=== PATIENT | female | born 1940 | race Caucasian/White ===

== ENCOUNTER 2016-07-22 11:43 | Inpatient (IN) | payer MEDICARE, OTHER ==
[~2016-07-22] VITALS: Ht 157.5 cm; Wt 68.9 kg
[~2016-07-22 11:43] MED LIST: ALBU8I INH; ALPR.25 PO; BEDSMIS4; CALCTAB80 PO; CARI350T19 PO; CLON.5 PO; ENOX30P SQ; FLON0.053; FOLI400T30 PO; LACTTAB7 PO; LEVO.025 PO; LOVA40TA PO; LYRI50CA2 PO; OMEP20TA39 PO; PERC5TAB12 PO; ROPI.25 PO; SERT-129 PO; SPIRCAP INH; VITA-13 PO; VITA100017 PO; VITA100T15 PO; VITA25TA5 PO; VITA400C70 PO; Z.0.WALKERFRONT; ZINC50TA PO
[2016-07-22 11:47] VITALS: BP 117/67; PULSE 84; RESP 24; TEMP 97.4; O2SAT 93
--- NOTE | 2016-07-22 12:49 | PD ---
HPI Chief Complaint: Back/ Neck Pain or Injury Time Seen by Provider: 12:48 Travel History International Travel<30 days: No Contact w/Intl Traveler<30days: No Traveled to known affect area: No History of Present Illness HPI 75-year-old female with history of vertigo, COPD, osteoarthritis, anxiety, presents to emergency department for evaluation of significant neck pain and inability to lift her neck. Patient states that about 6 weeks ago she began having right sided numbness and paralysis that has been intermittent. She has been worked up by Dr. Adolph avila and states that he has not found out why this is happy. She states she has had several falls due to this with her most recent fall last evening in her garage. She did strike her head but following one of the falls she has been having severe pain at the base of her neck and inability to lift her neck. She states she cannot swallow secondary to not being able to lift up her head and she feels that her voice is different. She denies any recent illnesses, fever, chills. No chest pain or tightness. No difficulty breathing. She has no acute focal deficits to describe [facility] Past Medical History Cancer: No Cardiovascular Problems: No Diabetes: No Diminished Hearing: No Endocrine: Yes Gastrointestinal Disorders: Yes (ULCER HX) Genitourinary: No Hepatitis: No Hiatal Hernia: No Immune Disorder: No Musculoskeletal: Yes (ARTHRITIS, RESTLESS LEG SYND.) Neurologic: Yes (VERTIGO) Psychiatric: Yes (ANXIETY) Reproductive: No Respiratory: Yes (COPD) Thyroid Disease: Yes ?: Not Past Surgical History Abdominal Surgery: Yes AICD: No Cholecystectomy: Yes Gynecologic Surgery: Yes (OVARIAN CYSTECTOMIES, TAHBSO) Joint Replacement: Yes (RIGHT KNEE, LEFT HIP) Oral Surgery: Yes (T & A) Pacemaker: No Social History Alcohol Use: No Tobacco Use: No Substance Use: No Allergies-Medications (Allergen,Severity, Reaction): Coded Allergies: Adhesives (Unverified Allergy, Severe, SKIN TEAR, 01/19/14) Reported Meds & Prescriptions Reported Meds & Active Scripts Active Bedside Commode (Misc. Devices) Bedside Mis U Walker Front Wheel (Walkerfront) Device 1 Unit PRN Klonopin (Clonazepam) 0.5 Mg Tab 0.5 Mg PO TID Requip (Ropinirole HCl) 0.25 Mg Tab 0.25 Mg PO TID Percocet 5-325 mg (Oxycodone/Acetaminophen) Oxycodone 5/325 Acetaminophen Tab 1- 2 Tab PO Q4H PRN Lovenox (Enoxaparin Sodium) 30 Mg/0.3 Ml Inj 30 Mg SQ Q12H 10 Days Ventolin Hfa (Albuterol Sulfate) 8 Gm Aero 2 Puff INH Q6 PRN * SHAKE WELL BEFORE USE * Xanax 0.25 Mg (Alprazolam) Alprazolam 0.25 mg Tab 1 Tab PO DAILY PRN Reported Spiriva Handihaler (Tiotropium [place]) 18 Mcg Cap 1 Dose INH DAILY DO NOT SWALLOW CAPSULES Lyrica (Pregabalin) 50 Mg Cap 50 Mg PO BID Levothyroxine 25 mcg (Levothyroxine Sodium) 25 Mcg Tab 1 Tab PO DAILY Floranex (Lactobacillus) Tab 1 Tab PO DAILY Zinc 50 Mg Tab 1 Tab PO DAILY Vitamin C (Ascorbic Acid) 1,000 Mg Tab 1,000 Mg PO DAILY Vitamin E 400 Units Cap 400 Units PO DAILY Vitamin D3 1000 Unit Tab (Cholecalciferol) 1,000 Unit Tab 1,000 Unit PO DAILY Calcium 1000 + D (Calcium Carbonate/Cholecalciferol) Tab 1 Tab PO DAILY Folate (Folic Acid) 400 Mcg Tab 400 Mcg PO DAILY Vitamin B-6 (Pyridoxine Hcl) 25 Mg Tab 50 Mg PO DAILY Vitamin B12 (Cyanocobalamin) 100 Mcg Tab 250 Mcg PO DAILY Flonase (Fluticasone Propionate) 0.05 % Naspr 2 Spr NA BID 2 SPRAYS EACH NOSTRIL Hm Omeprazole (Omeprazole) 20 Mg Tab 20 Mg PO DAILY Lovastatin 40 Mg Tab 40 Mg PO DAILY Sertraline Hcl (Sertraline HCl) 100 Mg Tab 100 Mg PO DAILY Carisoprodol 350 Mg Tab 350 Mg PO Q8H PRN Review of Systems Except as stated in HPI: all other systems reviewed are Neg Physical Exam Narrative GENERAL: Well-nourished female patient, appears chronically ill but in no acute distress SKIN: Warm and dry. HEAD: Atraumatic. Normocephalic. Head is held forward EYES: Pupils equal and round. No scleral icterus. No injection or drainage. ENT: No nasal bleeding or discharge. Mucous membranes pink and moist. NECK: Trachea midline. No JVD. Tenderness elicited palpation at the base of the cervical spine CARDIOVASCULAR: Regular rate and rhythm. No murmur appreciated. RESPIRATORY: No accessory muscle use. Clear to auscultation. Breath sounds equal bilaterally. GASTROINTESTINAL: Abdomen soft, non-tender, nondistended. Hepatic and splenic margins not palpable. MUSCULOSKELETAL: No obvious deformities. No clubbing. No cyanosis. No edema. NEUROLOGICAL: Awake and alert. No obvious cranial nerve deficits. Motor grossly within normal limits. Normal speech. PSYCHIATRIC: Appropriate mood and affect; insight and judgment normal. Data Data Last Documented VS Vital Signs Date Time Temp Pulse Resp B/P Pulse Ox O2 Delivery O2 Flow Rate FiO2 07/22/16 11:47 97.4 84 24 117/[address] Cerv Spine W/O Contrast (07/22/16 ) Apply Cervical Collar (07/22/16 12:46) Chest, Single Ap (07/22/16 ) Ct Brain W/O Iv Contrast(Rout) (07/22/16 ) Complete Blood Count With Diff (07/22/16 12:46) Basic Metabolic Panel (Bmp) (07/22/16 12:46) Electrocardiogram (07/22/16 12:46) Ckmb (Isoenzyme) Profile (07/22/16 12:46) Prothrombin Time / Inr (Pt) (07/22/16 12:46) Act Partial Throm Time (Ptt) (07/22/16 12:46) Troponin I (07/22/16 12:46) Urinalysis - C+S If Indicated (07/22/16 12:46) CKMB (07/22/16 13:01) CKMB% (07/22/16 13:01) Toe (Min 2vws) (07/22/16 17:48) Admit Order (Ed Use Only) (07/22/16 18:20) Labs Laboratory Tests Test 07/22/16 07/22/16 13:01 13:19 Prothrombin Time 10.9 SEC Prothromb Time International 1.0 RATIO Ratio Activated Partial 25.9 SEC Thromboplast Time Sodium Level 129 MEQ/L Potassium Level 5.2 MEQ/L Chloride Level 94 MEQ/L Carbon Dioxide Level 20.6 MEQ/L Anion Gap 14 MEQ/L Blood Urea Nitrogen 60 MG/DL Creatinine 4.27 MG/DL Estimat Glomerular Filtration 10 ML/MIN Rate Random Glucose 132 MG/DL Calcium Level 8.8 MG/DL Total Creatine Kinase 6427 U/L Creatine Kinase MB 88.9 NG/ML Creatine Kinase MB % 1.4 % Troponin I LESS THAN 0.02 NG/ML White Blood Count 24.3 TH/MM3 Red Blood Count 3.38 MIL/MM3 Hemoglobin 10.2 GM/DL Hematocrit 30.9 % Mean Corpuscular Volume 91.2 FL Mean Corpuscular Hemoglobin 30.1 PG Mean Corpuscular Hemoglobin 33.0 % Concent Red Cell Distribution Width 15.0 % Platelet Count 374 TH/MM3 Mean Platelet Volume 7.4 FL Neutrophils (%) (Auto) 89.4 % Lymphocytes (%) (Auto) 4.7 % Monocytes (%) (Auto) 5.6 % Eosinophils (%) (Auto) 0.0 % Basophils (%) (Auto) 0.3 % Neutrophils # (Auto) 21.7 TH/MM3 Lymphocytes # (Auto) 1.1 TH/MM3 Monocytes # (Auto) 1.4 TH/MM3 Eosinophils # (Auto) 0.0 TH/MM3 Basophils # (Auto) 0.1 TH/MM3 CBC Comment AUTO DIFF Differential Comment AUTO DIFF CONFIRMED Platelet Estimate NORMAL Platelet Morphology Comment NORMAL MDM Medical Decision Making Medical Screen Exam Complete: Yes Emergency Medical Condition: Yes Medical Record Reviewed: Yes Differential Diagnosis Fracture versus sprain versus intracranial etiology versus neuralgia versus electrolyte abnormality Narrative Course 75-year-old female presents to the emergency department for evaluation. Workup is initiated in triage. Once a medical bed becomes available, patient will be transferred and care assumed by that provider. Condition: Stable JefferySherinLissakalyn GUEVARA Jul 22, 2016 12:48
[2016-07-22 13:28] LABS: AUTOMATED NEUTROPHIL # 21.7 TH/MM3 (1.8-7.7); BASOPHIL # 0.1 TH/MM3 (0-0.2); BASOPHIL % 0.3 % (0.0-2.0); HEMATOCRIT 30.9 % (35.0-46.0); LYMPH % 4.7 % (9.0-44.0); LYMPHOCYTE # 1.1 TH/MM3 (1.0-4.8); MEAN CELL VOLUME 91.2 FL (80.0-100.0); MEAN CORPUSCULAR HEMOGLOBIN 30.1 PG (27.0-34.0); MONO % 5.6 % (0.0-8.0); NEUT % 89.4 % (16.0-70.0); PLATELET COUNT 374 TH/MM3 (150-450); RED BLOOD COUNT 3.38 MIL/MM3 (4.00-5.30); WHITE BLOOD COUNT 24.3 TH/MM3 (4.0-11.0)
[2016-07-22 13:30] LABS: HEMO FLAGS AUTO DIFF
[2016-07-22 13:40] LABS: APTT (PATIENT) 25.9 SEC (24.3-30.1); PROTHROMBIN TIME - PATIENT 10.9 SEC (9.8-11.6)
[2016-07-22 13:44] LABS: ANION GAP 14 MEQ/L (5-15); BICARBONATE 20.6 MEQ/L (21.0-32.0); BLOOD UREA NITROGEN 60 MG/DL (7-18); CHLORIDE 94 MEQ/L (98-107); GLOMERULAR FILTRATION RATE 10 ML/MIN (>89); POTASSIUM 5.2 MEQ/L (3.5-5.1); SODIUM (NA) 129 MEQ/L (136-145)
[2016-07-22 13:59] LABS: CREATINE KINASE 6427 U/L (26-192)
[2016-07-22 13:59] LABS: SCAN/DIFF AUTO DIFF CONFIRMED
[2016-07-22 14:00] LABS: PLATELET ESTIMATE SMEAR NORMAL (NORMAL); PLATELET MORPHOLOGY NORMAL (NORMAL)
[2016-07-22 14:11] LABS: CKMB 88.9 NG/ML (0.5-3.6)
--- NOTE | 2016-07-22 14:13 | RADRPT ---
EXAM DATE/TIME: 07/22/2016 13:49 [facility] COMPARISON: No previous studies available for comparison. INDICATIONS : Mutiple falls head neck. RADIATION DOSE: 47.42 CTDIvol (mGy) MEDICAL HISTORY : Cirrhosis. SURGICAL HISTORY : Cholecystectomy. ENCOUNTER: Initial ACUITY: 1 day PAIN SCALE: 7/10 LOCATION: cranial TECHNIQUE: Multiple contiguous axial images were obtained of the head. Using automated exposure control and adj ustment of the mA and/or kV according to patient size, radiation dose was kept as low as reasonably a chievable to obtain optimal diagnostic quality images. FINDINGS: CEREBRUM: The ventricles are normal for age. No evidence of midline shift, mass lesion, hemorrhage or acute in farction. No extra-axial fluid collections are seen. POSTERIOR FOSSA: The cerebellum and brainstem are intact. The 4th ventricle is midline. The cerebellopontine angle i s unremarkable. EXTRACRANIAL: The visualized portion of the orbits is intact. SKULL: The calvaria is intact. No evidence of skull fracture. CONCLUSION: Normal examination for a patient of this age. Raymond Lehman MD on July 22, 2016 at 14:11 Board Certified Radiologist. This report was verified electronically.
--- NOTE | 2016-07-22 14:28 | RADRPT ---
EXAM DATE/TIME: 07/22/2016 13:38 [facility] COMPARISON: No previous studies available for comparison. INDICATIONS : Fell Friday, neck and thoracic spine pain. Pt states very dificult to straighten neck. MEDICAL HISTORY : SURGICAL HISTORY : None. ENCOUNTER: Initial ACUITY: 3 days PAIN SCORE: 10/10 LOCATION: Bilateral chest FINDINGS: 2 portable frontal views of the chest demonstrate the lungs to be symmetrically aerated without evide nce of mass, infiltrate or effusion. The cardiomediastinal contours are unremarkable. Osseous struc tures are intact. CONCLUSION: No acute disease. Shin Martin Jr., MD on July 22, 2016 at 14:26 Board Certified Radiologist. This report was verified electronically.
--- NOTE | 2016-07-22 14:30 | RADRPT ---
EXAM DATE/TIME: 07/22/2016 13:49 [facility] COMPARISON: No previous studies available for comparison. INDICATIONS : Multiple falls, head and neck pain. RADIATION DOSE: 42.99 CTDIvol (mGy) MEDICAL HISTORY : Chronic obstructive pulmonary disease. SURGICAL HISTORY : Cholecystectomy. ENCOUNTER: Initial ACUITY: 3 days PAIN SCALE: 7/10 LOCATION: Bilateral neck TECHNIQUE: Volumetric scanning of the cervical spine was performed. Multiplanar reconstructions in the sagittal, coronal and oblique axial planes were performed. Using automated exposure control and adjustment o f the mA and/or kV according to patient size, radiation dose was kept as low as reasonably achievable to obtain optimal diagnostic quality images. FINDINGS: Thin section axial imaging of the cervical spine was performed. Sagittal and coronal imaging demonstrate adequate alignment of the vertebral bodies. There are degene rated discs throughout the cervical spine. C1/2: No acute bony abnormality identified. C2/3: The thecal space is adequate. The foramina on the right is adequate. There is mild bony foraminal micah rowing on the left. There is advanced facet arthritis on the left. C3/4: The thecal space is adequate. The foramina on the right is adequate. There is advanced facet arthriti s on the left with hypertrophy of the facet joint. There is mild bony foraminal narrowing on the left . C4/5: There is a degenerated disc with mild osteophytic ridging. The thecal space appears adequate. The for josephine demonstrate mild bony narrowing bilaterally. There is moderate facet arthritis bilaterally. C5/6: There is a large uncovertebral osteophyte on the left which projects posteriorly. This effaces the la teral recess and projects into the foramina on the left. The foramina on the right is adequate. C6/7: There is a degenerated disc with a central disc bulge and diffuse osteophytic ridging. This effaces t he ventral thecal sac. The residual thecal space appears narrowed but adequate. The foramina appear a dequate. C7/T1: The thecal space is adequate. The neural foramina are adequate. No significant abnormality is identif ied. CONCLUSION: 1. Degenerative changes as above. The most significant abnormality is on the left at C5-6. 2. No acute fracture identified. 3. The individual levels are dictated in detail above. Parveen Meza MD on July 22, 2016 at 14:23 Board Certified Radiologist. This report was verified electronically.
--- NOTE | 2016-07-22 17:16 | PD ---
Physical Exam Narrative Patient was seen by my physician desk assistant and signed out to me. Data Data Last Documented VS Vital Signs Date Time Temp Pulse Resp B/P Pulse Ox O2 Delivery O2 Flow Rate FiO2 07/22/16 11:47 97.4 84 24 117/[address] Cerv Spine W/O Contrast (07/22/16 ) Apply Cervical Collar (07/22/16 12:46) Chest, Single Ap (07/22/16 ) Ct Brain W/O Iv Contrast(Rout) (07/22/16 ) Complete Blood Count With Diff (07/22/16 12:46) Basic Metabolic Panel (Bmp) (07/22/16 12:46) Electrocardiogram (07/22/16 12:46) Ckmb (Isoenzyme) Profile (07/22/16 12:46) Prothrombin Time / Inr (Pt) (07/22/16 12:46) Act Partial Throm Time (Ptt) (07/22/16 12:46) Troponin I (07/22/16 12:46) Urinalysis - C+S If Indicated (07/22/16 12:46) CKMB (07/22/16 13:01) CKMB% (07/22/16 13:01) Toe (Min 2vws) (07/22/16 17:48) Admit Order (Ed Use Only) (07/22/16 18:20) Labs Laboratory Tests Test 07/22/16 07/22/16 13:01 13:19 Prothrombin Time 10.9 SEC Prothromb Time International 1.0 RATIO Ratio Activated Partial 25.9 SEC Thromboplast Time Sodium Level 129 MEQ/L Potassium Level 5.2 MEQ/L Chloride Level 94 MEQ/L Carbon Dioxide Level 20.6 MEQ/L Anion Gap 14 MEQ/L Blood Urea Nitrogen 60 MG/DL Creatinine 4.27 MG/DL Estimat Glomerular Filtration 10 ML/MIN Rate Random Glucose 132 MG/DL Calcium Level 8.8 MG/DL Total Creatine Kinase 6427 U/L Creatine Kinase MB 88.9 NG/ML Creatine Kinase MB % 1.4 % Troponin I LESS THAN 0.02 NG/ML White Blood Count 24.3 TH/MM3 Red Blood Count 3.38 MIL/MM3 Hemoglobin 10.2 GM/DL Hematocrit 30.9 % Mean Corpuscular Volume 91.2 FL Mean Corpuscular Hemoglobin 30.1 PG Mean Corpuscular Hemoglobin 33.0 % Concent Red Cell Distribution Width 15.0 % Platelet Count 374 TH/MM3 Mean Platelet Volume 7.4 FL Neutrophils (%) (Auto) 89.4 % Lymphocytes (%) (Auto) 4.7 % Monocytes (%) (Auto) 5.6 % Eosinophils (%) (Auto) 0.0 % Basophils (%) (Auto) 0.3 % Neutrophils # (Auto) 21.7 TH/MM3 Lymphocytes # (Auto) 1.1 TH/MM3 Monocytes # (Auto) 1.4 TH/MM3 Eosinophils # (Auto) 0.0 TH/MM3 Basophils # (Auto) 0.1 TH/MM3 CBC Comment AUTO DIFF Differential Comment AUTO DIFF CONFIRMED Platelet Estimate NORMAL Platelet Morphology Comment NORMAL MDM Supervised Visit with VAL: Yes Interpretation(s) Last Impressions Head CT 07/22/16 0000 Signed Impressions: Service Date/Time: Friday, July 22, 2016 13:49 - CONCLUSION: Normal examination for a patient of this age. Raymond Lehman MD Chest X-Ray 07/22/16 0000 Signed Impressions: Service Date/Time: Friday, July 22, 2016 13:38 - CONCLUSION: No acute disease. Shin Martin Jr., MD Cervical Spine CT 07/22/16 0000 Signed Impressions: Service Date/Time: Friday, July 22, 2016 13:49 - CONCLUSION: 1. Degenerative changes as above. The most significant abnormality is on the left at C5-6. 2. No acute fracture identified. 3. The individual levels are dictated in detail above. Parveen Meza MD 1715 p.m. CBC WBC 24.3. Hemoglobin 10.2 hematocrit 30.9. 89 neutrophil. Sodium 129. Potassium 5.2. Chloride 94. Bicarbonate 20.6. BUNs 60. Creatinine 4.27. GFR 10. Glucose 132. Total CK 6427. Normal MB fraction. Troponin normal. Diagnosis Primary Impression: Acute nontraumatic kidney injury Additional Impression: Neck pain Admitting Information Admitting Physician Requests: Observation Vu Harvey MD Jul 22, 2016 17:16
[2016-07-22 18:00] VITALS: PULSE 82
--- NOTE | 2016-07-22 18:24 | RADRPT ---
EXAM DATE/TIME: 07/22/2016 17:57 [facility] COMPARISON: No previous studies available for comparison. INDICATIONS : Intermittent great toe pain, no known injury. MEDICAL HISTORY : None. SURGICAL HISTORY : None. ENCOUNTER: Initial ACUITY: 1 month PAIN SCORE: 1/10 LOCATION: Left foot, 1st digit. FINDINGS: Examination of the first digit of the left foot demonstrates moderate osteoarthritis of the first MTP . Mild hallux valgus. No acute fracture or dislocation. CONCLUSION: 1. Moderate to severe osteoarthritis at the first MTP with mild hallux valgus. Elias Montague MD on July 22, 2016 at 18:22 Board Certified Radiologist. This report was verified electronically.
[2016-07-22] MEDS ORDERED: ONDANSETRON HCL 4 MG/2 ML VIAL IV PRN (18:30)
[2016-07-22] MEDS ORDERED: SODIUM CHLORIDE 0.9% FLUSH 5 ML FLUSH IVF PRN (18:30)
[2016-07-22] MEDS ORDERED: ACETAMINOPHEN 325 MG TAB PO PRN (18:30)
[2016-07-22] MEDS ORDERED: SODIUM CHLOR 0.9% 1000 ML INJ 1,000 ML IV ONE (18:30)
[2016-07-22 19:45] VITALS: BP 153/62; PULSE 81; RESP 16; O2SAT 94
--- NOTE | 2016-07-22 20:04 | RADRPT ---
EXAM DATE/TIME: 07/22/2016 19:14 [facility] COMPARISON: No previous studies available for comparison. INDICATIONS : Pain. History of falls. MEDICAL HISTORY : Chronic obstructive pulmonary disease. SURGICAL HISTORY : Cholecystectomy. Hysterectomy. Appendectomy. hip/knee surgery. ENCOUNTER: Initial ACUITY: 2 day PAIN SCORE: 4/10 LOCATION: neck TECHNIQUE: Multiplanar, multisequence MRI examination of the cervical spine was performed. FINDINGS: At C2-3 there is mild left neural foraminal stenosis. No canal stenosis. At C3-4 there is posterior osteophytic ridging resulting in a mild AP canal stenosis and lateral rece ss stenosis and left-sided neural foraminal stenosis. At C4-5 there is some osteophytic ridging without stenosis. At C5-6 there is a prominent left-sided disc osteophyte complex with mild canal stenosis and moderate to severe left lateral recess stenosis and left-sided neural foraminal stenosis. At C6-7 there is posterior osteophytic ridging but without significant canal or foraminal stenosis. At C7-T1 there is some osteophytic ridging without significant stenosis. CONCLUSION: 1. Multilevel degenerative disc disease as above. No acute fracture or spondylolisthesis. Prominent d isc osteophyte complex on the left at C5-6 with left lateral recess and foraminal stenosis. No cord e hailee. Elias Montague MD on July 22, 2016 at 19:57 Board Certified Radiologist. This report was verified electronically.
[2016-07-22] MEDS: SODIUM CHLOR 0.9% 1000 ML INJ 1,000 ML IV SCH (20:11)
[2016-07-22] MEDS: SODIUM CHLORIDE 0.9% FLUSH 5 ML FLUSH IVF SCH (20:11)
--- NOTE | 2016-07-22 20:47 | HHI.HP ---
HPI Service [facility] Hospitalists Primary Care Physician Non-Staff Admission Diagnosis intractable neck pain. Acute kidney injury. Leukocytosis. Chief Complaint: Neck pain, frequent falls, poor oral intake Travel History International Travel<30 Days: No Contact w/Intl Traveler <30 Da: No Traveled to Known Affected Are: No History of Present Illness 75-year-old female with history of vertigo/disequilibrium, COPD, osteoarthritis , anxiety, presents to emergency department for evaluation of significant neck pain and inability to lift her head. Patient states that about 6 weeks ago she began having right sided numbness and paralysis that has been intermittent. She has been worked up by Dr. Farfan outpatient and states that he has not found out why this is happening. Review of outpatient charts reveals multiple visits to her neurologist over the last several years. The right-sided weakness and tingling and numbness seem to have happened somewhere in early April 2016. Dr. Farfan's note seemed to associate the symptoms with TIA or left middle cerebral artery CVA. She states she has had several falls due to this with her most recent fall last evening in her garage. She did strike her head but following one of the falls she has been having severe pain at the base of her neck and inability to lift her neck. She states she cannot swallow well secondary to not being able to lift up her head and she feels that her voice is different. She denies any recent illnesses, fever, chills. No chest pain or tightness. No difficulty breathing. She has suffered multiple bruises due to the falls. She still lives alone and gets somewhat anxious when I mention that she should likely be in assisted living or more supervised environment. Her son in [place] is reportedly coming to the area in July to discuss her moving back to [place]. Workup thus far reveals no acute findings on imaging of her neck and head. She does have significant degenerative changes and osteophytes in her cervical spine. Abdomen were noted for elevated creatinine above 4 whereas her baseline seems to be around 1.4 or 1.5. CPK is quite elevated as well in the 6,000 range. White blood cell count also significantly elevated in the mid-20s. She has been given IV fluids and Tylenol in the ER. When I see her she is actually able to move her head and neck much better but still has pain and occasional spasm particularly on the right side of her neck. Review of Systems Constitutional: COMPLAINS OF: Fatigue, Weight loss Eyes: DENIES: Blurred vision, Diplopia, Eye inflammation, Eye pain, Vision loss , Photosensitivity, Double Vision Ears, nose, mouth, throat: DENIES: Tinnitus, Hearing loss, Vertigo, Nasal discharge, Oral lesions, Throat pain, Hoarseness, Ear Pain, Running Nose, Epistaxis, Sinus Pain, Toothache, Odynophagia Respiratory: DENIES: Apneas, Cough, Snoring, Wheezing, Hemoptysis, Sputum production, Shortness of breath Cardiovascular: DENIES: Chest pain, Palpitations, Syncope, Dyspnea on Exertion , PND, Lower Extremity Edema, Orthopnea, Claudication Gastrointestinal: DENIES: Abdominal pain, Black stools, Bloody stools, BRB per rectum, Constipation, Diarrhea, GERD, Nausea, Reflux, Vomiting, Difficulty Swallowing, Anorexia, See HPI Musculoskeletal: COMPLAINS OF: Joint pain, Muscle aches, Stiffness, Back pain, Neck pain Hematologic/lymphatic: COMPLAINS OF: Bruising, DENIES: Lymphadenopathy Immunologic/allergic: DENIES: Eczema, Urticaria Neurologic: COMPLAINS OF: Abnormal gait, Localized weakness, Poor Balance Psychiatric: COMPLAINS OF: Anxiety Past Family Social History Past Medical History Chronic iron deficiency anemia Cerebral infarction of the left middle cerebral artery COPD Depression with anxiety Frequent falls Fibromyalgia Hyperlipidemia Chronic kidney disease stage III Hypothyroidism Mild memory disturbance Osteoarthritis Degenerative disc disease Emphysema Pulmonary hypertension Tortuous aorta Past Surgical History Appendectomy Cataract surgery Cholecystectomy HEENT surgery in 2003 Apparent lymph node biopsy in 1986 which was benign Tonsillectomy and adenoidectomy Total abdominal hysterectomy 1976 Total right hip replacement in 2016 Total knee arthroplasty Reported Medications Klonopin (Clonazepam) 0.5 Mg Tab 0.5 Mg PO TID Requip (Ropinirole HCl) 0.25 Mg Tab 0.25 Mg PO TID Percocet 5-325 mg (Oxycodone/Acetaminophen) Oxycodone 5/325 Acetaminophen Tab 1- 2 Tab PO Q4H PRN Lovenox (Enoxaparin Sodium) 30 Mg/0.3 Ml Inj 30 Mg SQ Q12H 10 Days Ventolin Hfa (Albuterol Sulfate) 8 Gm Aero 2 Puff INH Q6 PRN * SHAKE WELL BEFORE USE * Xanax 0.25 Mg (Alprazolam) Alprazolam 0.25 mg Tab 1 Tab PO DAILY PRN Spiriva Handihaler (Tiotropium [place]) 18 Mcg Cap 1 Dose INH DAILY DO NOT SWALLOW CAPSULES Lyrica (Pregabalin) 50 Mg Cap 50 Mg PO BID Levothyroxine 25 mcg (Levothyroxine Sodium) 25 Mcg Tab 1 Tab PO DAILY Floranex (Lactobacillus) Tab 1 Tab PO DAILY Zinc 50 Mg Tab 1 Tab PO DAILY Vitamin C (Ascorbic Acid) 1,000 Mg Tab 1,000 Mg PO DAILY Vitamin E 400 Units Cap 400 Units PO DAILY Vitamin D3 1000 Unit Tab (Cholecalciferol) 1,000 Unit Tab 1,000 Unit PO DAILY Calcium 1000 + D (Calcium Carbonate/Cholecalciferol) Tab 1 Tab PO DAILY Folate (Folic Acid) 400 Mcg Tab 400 Mcg PO DAILY Vitamin B-6 (Pyridoxine Hcl) 25 Mg Tab 50 Mg PO DAILY Vitamin B12 (Cyanocobalamin) 100 Mcg Tab 250 Mcg PO DAILY Flonase (Fluticasone Propionate) 0.05 % Naspr 2 Spr NA BID 2 SPRAYS EACH NOSTRIL Hm Omeprazole (Omeprazole) 20 Mg Tab 20 Mg PO DAILY Lovastatin 40 Mg Tab 40 Mg PO DAILY Sertraline Hcl (Sertraline HCl) 100 Mg Tab 100 Mg PO DAILY Carisoprodol 350 Mg Tab 350 Mg PO Q8H PRN Allergies: Coded Allergies: Adhesives (Unverified Allergy, Severe, SKIN TEAR, 01/19/14) Family History Noncontributory Social History Lives alone and reportedly is Originally from [place] move to the area in her 20s Lives independently and does her own shopping, grooming, yardwork, housecleaning Stop smoking in the 1980s but prior to that smoked 1 pack per day for 10 years No regular alcohol use 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 Physical Exam Vital Signs Vital Signs Date Time Temp Pulse Resp B/P Pulse Ox O2 Delivery O2 Flow Rate FiO2 07/22/16 19:45 81 16 153/62 94 Room Air 07/22/16 11:47 97.4 84 24 117/67 93 Room Air Physical Exam GENERAL: This is a well-nourished, well-developed patient, in no apparent distress. Alert and oriented. Cooperative with exam. SKIN: Multiple areas of ecchymosis in various stages of healing on her arms and forearms, also on her legs. HEAD: Normocephalic. Positive scalp tenderness and posterior scalp. No temporal artery tenderness. EYES: Pupils equal round and reactive. Extraocular motions intact. No scleral icterus. No injection or drainage. ENT: Nose without bleeding, purulent drainage or septal hematoma. Tympanic membranes normal. Uvula midline. Airway patent. NECK: Trachea midline. No JVD or lymphadenopathy. Some myospasm noted particularly in the posterior right neck. She does have limited range of motion particularly with neck extension. No central tenderness to palpation. CARDIOVASCULAR: Regular rate and rhythm without murmurs, gallops, or rubs. RESPIRATORY: Clear to auscultation. Breath sounds equal bilaterally. No wheezes , rales, or rhonchi. GASTROINTESTINAL: Abdomen soft, non-tender, nondistended. No hepato-splenomegaly , or palpable masses. No guarding. MUSCULOSKELETAL: Extremities without clubbing, cyanosis, or edema. No joint tenderness, effusion, or edema noted. No calf tenderness. NEUROLOGICAL: Awake and alert. Cranial nerves II through XII intact. Motor and sensory grossly within normal limits. Five out of 5 muscle strength in left extremities, but 4.5 out of 5 on the right. Somewhat slow speech. Laboratory Laboratory Tests Test 07/22/16 07/22/16 13:01 13:19 Prothrombin Time 10.9 Prothromb Time International 1.0 Ratio Activated Partial 25.9 Thromboplast Time Sodium Level 129 Potassium Level 5.2 Chloride Level 94 Carbon Dioxide Level 20.6 Anion Gap 14 Blood Urea Nitrogen 60 Creatinine 4.27 Estimat Glomerular Filtration 10 Rate Random Glucose 132 Calcium Level 8.8 Total Creatine Kinase 6427 Creatine Kinase MB 88.9 Creatine Kinase MB % 1.4 Troponin I LESS THAN 0.02 White Blood Count 24.3 Red Blood Count 3.38 Hemoglobin 10.2 Hematocrit 30.9 Mean Corpuscular Volume 91.2 Mean Corpuscular Hemoglobin 30.1 Mean Corpuscular Hemoglobin 33.0 Concent Red Cell Distribution Width 15.0 Platelet Count 374 Mean Platelet Volume 7.4 Neutrophils (%) (Auto) 89.4 Lymphocytes (%) (Auto) 4.7 Monocytes (%) (Auto) 5.6 Eosinophils (%) (Auto) 0.0 Basophils (%) (Auto) 0.3 Neutrophils # (Auto) 21.7 Lymphocytes # (Auto) 1.1 Monocytes # (Auto) 1.4 Eosinophils # (Auto) 0.0 Basophils # (Auto) 0.1 CBC Comment AUTO DIFF Differential Comment AUTO DIFF CONFIRMED Platelet Estimate NORMAL Platelet Morphology Comment NORMAL Result Diagram: 07/22/16 1319 07/22/16 1301 Imaging Last 72 hours Impressions Toe X-Ray 07/22/16 1748 Signed Impressions: Service Date/Time: Friday, July 22, 2016 17:57 - CONCLUSION: 1. Moderate to severe osteoarthritis at the first MTP with mild hallux valgus. Elias Montague MD Head CT 07/22/16 0000 Signed Impressions: Service Date/Time: Friday, July 22, 2016 13:49 - CONCLUSION: Normal examination for a patient of this age. Raymond Lehman MD Chest X-Ray 07/22/16 0000 Signed Impressions: Service Date/Time: Friday, July 22, 2016 13:38 - CONCLUSION: No acute disease. Shin Martin Jr., MD Cervical Spine MRI 07/22/16 0000 Signed Impressions: Service Date/Time: Friday, July 22, 2016 19:14 - CONCLUSION: 1. Multilevel degenerative disc disease as above. No acute fracture or spondylolisthesis. Prominent disc osteophyte complex on the left at C5-6 with left lateral recess and foraminal stenosis. No cord edema. Elias Montague MD Cervical Spine CT 07/22/16 0000 Signed Impressions: Service Date/Time: Friday, July 22, 2016 13:49 - CONCLUSION: 1. Degenerative changes as above. The most significant abnormality is on the left at C5-6. 2. No acute fracture identified. 3. The individual levels are dictated in detail above. Parveen Meza MD Assessment and Plan Problem List: (1) Neck pain Status: Chronic Plan: She has noted osteophytes and degenerative disc disease. We'll provide IV fluids, muscle relaxants and pain meds. Neurology will see the patient. She is followed outpatient by Dr. Farfan. (2) Acute nontraumatic kidney injury Status: Acute Plan: Positive associated with poor by mouth intake and mild rhabdomyolysis. We'll provide IV fluids and follow. (3) COPD (chronic obstructive pulmonary disease) Status: Chronic Plan: DuoNeb as needed. (4) HTN (hypertension) Status: Chronic Plan: Continue medications. (5) Spinal stenosis Status: Chronic Plan: Chronic. Mostly associated with lumbar spine. Doesn't seem to be an issue at this point. No significant stenosis noted on neck CT. Can't perform contrast MRI at this point due to renal injury. (6) Right-sided muscle weakness Status: Chronic Plan: Possibly due to a previous left middle cerebral artery stroke per outpatient chart review. Will need physical therapy. ultimately patient will need more assistance than likely will not be able to live independently in the future. (7) Multiple falls Status: Chronic Plan: Fall precautions. Physical therapy. Neuro to see. (8) Elevated CPK Status: Acute Plan: Likely associated with the multiple areas of ecchymosis and poor by mouth intake. We'll provide IV fluids. Possibly contributing to elevated white count along with the low-dose steroid she takes at home. Code Status Full Discussed Condition With Patient and ER physician Physician Certification 2 Midnight Certification Type: Admission for Inpatient Services Order for Inpatient Services The services are ordered in accordance with Medicare regulations or non- Medicare payer requirements, as applicable. In the case of services not specified as inpatient-only, they are appropriately provided as inpatient services in accordance with the 2-midnight benchmark. Estimated LOS (days): 3 days is the estimated time the patient will need to remain in the hospital, assuming treatment plan goals are met and no additional complications. Post-Hospital Plan: Not yet determined Problem Qualifiers (1) Spinal stenosis: Qualified Code: M48.06 - Spinal stenosis of lumbar region Cooper Boles PhD Jul 22, 2016 20:47
[2016-07-22] MEDS ORDERED: RESP: ALBUTEROL 2.5 MG/IPRATROPIUM 0.5 MG NEB (PRN) NEB (21:00)
[2016-07-22] MEDS ORDERED: SODIUM CHLOR 0.9% 1000 ML INJ 1,000 ML IV SCH (21:00)
[2016-07-22 21:10] LABS: BACTERIA, URINE MANY /hpf; BLOOD, URINE SMALL (NEG); GLUCOSE,URINE NEG (NEG); HYALINE CAST, URINE 3 /lpf (RARE); KETONE, URINE NEG (NEG); MUCUS URINE FEW /lpf (OCC); NITRITE,URINE NEG (NEG); SQUAMOUS EPITHELIAL CELL URINE 1 /hpf (0-5); URINE COLOR YELLOW (YELLW/STRAW)
[2016-07-22 21:11] LABS: COMMENT (UR) CULTURE INDICATED; CULTURE IF INDICATED CULTURE INDICATED
[2016-07-22 22:01] VITALS: O2SAT 94
[2016-07-23] VITALS (7 sets, daily range): BP systolic 103–150; BP diastolic 49–66; PULSE 72–86; RESP 17–20; TEMP 96.7–99.3; O2SAT 92–95
[2016-07-23] MEDS: traMADol HCL 50 MG TAB PO PRN ×3 (00:01→21:47)
[2016-07-23] MEDS: CYCLOBENZAPRINE HCL 10 MG TAB PO PRN ×3 (00:02→21:47)
[2016-07-23] MEDS: PREGABALIN 25 MG CAP PO SCH ×3 (00:44→21:47)
[2016-07-23] MEDS: FLUTICASONE PROPIONATE 50 MCG/ACT 16 GM NASAL SPRAY SCH ×3 (00:45→21:48)
[2016-07-23] MEDS: SODIUM CHLOR 0.9% 1000 ML INJ 1,000 ML IV SCH ×2 (04:30→13:20)
[2016-07-23] MEDS: LEVOTHYROXINE SODIUM 75 MCG TAB PO SCH (05:33)
[2016-07-23 08:30] LABS: AUTOMATED NEUTROPHIL # 11.9 TH/MM3 (1.8-7.7); BASOPHIL % 0.1 % (0.0-2.0); EOSINOPHIL # 0.1 TH/MM3 (0-0.4); EOSINOPHIL % 0.6 % (0.0-4.0); HEMATOCRIT 25.9 % (35.0-46.0); HEMO FLAGS DIFF FINAL; LYMPH % 13.8 % (9.0-44.0); LYMPHOCYTE # 2.1 TH/MM3 (1.0-4.8); MEAN CELL VOLUME 92.6 FL (80.0-100.0); MEAN CORPUSCULAR HEMOGLOBIN 30.8 PG (27.0-34.0); MEAN CORPUSCULAR HGB CONC 33.2 % (32.0-36.0); MONO % 6.3 % (0.0-8.0); NEUT % 79.2 % (16.0-70.0); PLATELET COUNT 312 TH/MM3 (150-450); RED CELL DISTRIBUTION WIDTH 15.1 % (11.6-17.2)
[2016-07-23] MEDS: clonazePAM 0.5 MG TAB PO SCH ×3 (09:04→17:13)
[2016-07-23] MEDS: predniSONE 10 MG TAB PO SCH (09:04)
[2016-07-23] MEDS: LACTOBACILLUS ACIDOPHILUS TAB PO SCH (09:04)
[2016-07-23] MEDS: PANTOPRAZOLE SOD 20 MG DELAYED RELEASE TAB PO SCH (09:04)
[2016-07-23] MEDS: SERTRALINE HCL 100 MG TAB PO SCH (09:04)
[2016-07-23] MEDS: SODIUM CHLORIDE 0.9% FLUSH 5 ML FLUSH IVF SCH ×2 (09:05→21:00)
[2016-07-23 09:11] LABS: ALKALINE PHOSPHATASE 88 U/L (45-117); ALT (GPT) 75 U/L (10-53); ANION GAP 11 MEQ/L (5-15); AST (GOT) 170 U/L (15-37); BICARBONATE 20.3 MEQ/L (21.0-32.0); BLOOD UREA NITROGEN 38 MG/DL (7-18); CHLORIDE 106 MEQ/L (98-107); CREATINE KINASE 4223 U/L (26-192); GLOMERULAR FILTRATION RATE 22 ML/MIN (>89); SODIUM (NA) 137 MEQ/L (136-145); TOTAL BILIRUBIN ADULT 0.4 MG/DL (0.2-1.0)
[2016-07-23 09:37] LABS: CKMB 42.5 NG/ML (0.5-3.6)
--- NOTE | 2016-07-23 13:24 | HHI.PR ---
Subjective Remarks has had alot of weakness and falls Objective Vitals numerous areas of ecchymosis over arms/legs/back/head heart reg lung cta abd s/nt ext no edema Vital Signs Date Time Temp Pulse Resp B/P Pulse Ox O2 Delivery O2 Flow Rate FiO2 07/23/16 12:15 18 07/23/16 12:00 97.1 75 18 123/57 93 07/23/16 10:53 95 21 07/23/16 10:04 18 07/23/16 08:00 96.9 72 20 112/60 95 07/23/16 05:06 97.3 75 17 108/54 94 07/23/16 00:07 97.7 78 18 103/49 93 07/22/16 22:01 94 21 07/22/16 19:45 81 16 153/62 94 Room Air 07/22/16 18:00 82 07/22/16 07/22/16 07/23/16 15:00 23:00 07:00 Intake Total 120 ml Balance 120 ml Intake Oral 120 ml # Voids 1 1 Result Diagram: 07/23/16 0736 07/23/16 0736 Imaging Last 72 hours Impressions Toe X-Ray 07/22/16 1748 Signed Impressions: Service Date/Time: Friday, July 22, 2016 17:57 - CONCLUSION: 1. Moderate to severe osteoarthritis at the first MTP with mild hallux valgus. Elias Montague MD Head CT 07/22/16 0000 Signed Impressions: Service Date/Time: Friday, July 22, 2016 13:49 - CONCLUSION: Normal examination for a patient of this age. Raymond Lehman MD Chest X-Ray 07/22/16 0000 Signed Impressions: Service Date/Time: Friday, July 22, 2016 13:38 - CONCLUSION: No acute disease. Shin Martin Jr., MD Cervical Spine MRI 07/22/16 0000 Signed Impressions: Service Date/Time: Friday, July 22, 2016 19:14 - CONCLUSION: 1. Multilevel degenerative disc disease as above. No acute fracture or spondylolisthesis. Prominent disc osteophyte complex on the left at C5-6 with left lateral recess and foraminal stenosis. No cord edema. Elias Montague MD Cervical Spine CT 07/22/16 0000 Signed Impressions: Service Date/Time: Friday, July 22, 2016 13:49 - CONCLUSION: 1. Degenerative changes as above. The most significant abnormality is on the left at C5-6. 2. No acute fracture identified. 3. The individual levels are dictated in detail above. Parveen Meza MD A/P Problem List: (1) Multiple falls Status: Acute Plan: Pt describes progressive weakness. falls. even some dysarthria and dysphagia at times describes neck pains and recently more rle weakness. rhabdomyolysis due to falls. maribell due to dehydration/rhabdo c5/6 cervical osteophyte general weakness ivf receck cr and ck levels PT dvt prophylaxis f/u neuro w/up. MG panel. neuro consult pending. might need snf (2) Cervical osteophyte Status: Acute Plan: see above (3) Rhabdomyolysis Status: Acute Plan: see above (4) MARIBELL (acute kidney injury) Status: Acute Plan: see above (5) COPD (chronic obstructive pulmonary disease) Status: Chronic Plan: DuoNeb as needed. (6) HTN (hypertension) Status: Chronic Plan: Continue medications. (7) Spinal stenosis Status: Chronic Plan: Chronic. Mostly associated with lumbar spine. Doesn't seem to be an issue at this point. (8) Hypothyroid Status: Chronic (9) Depressed Status: Chronic Problem Qualifiers (1) Spinal stenosis: Qualified Code: M48.06 - Spinal stenosis of lumbar region Bj Carter MD Jul 23, 2016 13:24
--- NOTE | 2016-07-23 13:33 | MB ---
cc: BAILEE PANDEY M.D. DATE OF CONSULTATION: 07/23/2016 HISTORY OF PRESENT ILLNESS A 75-year-old patient of Dr. Farfan, admitted because of neck pain, neck weakness and electrolyte abnormality. She is not a very good historian and described that for the past three and perhaps six weeks she has had some decline. She has been having some right-sided numbness and weakness and she has seen Dr. Farfan apparently with a diagnosis of a possible TIA. She has had falls. Her last fall apparently caused some injury to her head and after that she started having neck pain and some worsening of her inability to raise her head. She feels her head is stuck to her chin. No difficulty with respirations. She admits that she has difficulty swallowing because of the fact that she cannot straighten her neck. She feels she is getting stronger here today. She has been receiving IV fluids and seems to be feeling better. She had an MRI cervical spine which I reviewed and it shows degenerative changes, maximum C5-6, with possible early cervical myelopathy. Her CPK was elevated to the 6000 range initially and it dropped to 4223 today. Sodium 129 yesterday and 137 today. Potassium 5.2 yesterday, 4.0 today. BUN 60, creatinine 4.27 yesterday, and today the numbers are 38 and 2.18 respectively. Blood sugar 132. Calcium 8.8. AST and ALT also moderately elevated. NEUROLOGICAL EXAMINATION The exam shows an alert and pleasant woman. She is oriented. She is calm and cooperative. She describes that she is urinating a lot because of the IV fluids, but she is not incontinent. Ocular movements were grossly intact. Visual browning full. Pupils about the same size reactive. She has substantial restriction of her neck range of motion. I cannot extend her neck more than 30 degrees or so. This is somewhat painful and it is not due to weakness only, it is more of restriction from muscle spasm and pain. Tongue and palate move well. The speech is clear. She raises the arms and [id number] testing is normal. There is mild to moderate generalized weakness but she was standing up on her own using a walker and she was getting ready to go to the bathroom with assistance of the staff. She actually preferred to stand up rather than sitting down until I asked her to sit down for the interview and exam. Reflexes were 1+ at the elbows and knees, diminished but present at the ankles and plantar response seems to be flexor bilaterally. ASSESSMENT/RECOMMENDATIONS Neck pain and restriction of neck extension. There is also some restriction of neck turning to the right and left and I feel this is mostly on the basis of some pain and spasm instead of weakness perceived. Nonetheless, I am going to request additional data to include some myasthenia labs. I am concerned about her C5-6 and though not urgent this may need to be evaluated by neurosurgery eventually. Her rhabdomyolysis seems to be improving. She has acute renal dysfunction and some liver dysfunction as well. Continue the supportive medical care. I will have to look at Dr. Farfan's outpatient evaluation for the apparent right-sided TIAs. I will follow the neurological course. Thank you for asking us to assist in her care. MD LEANNA Phillips/BT /1:02 PM /1:21 PM
--- NOTE | 2016-07-23 16:48 | EKG ---
Date Performed: 07/22/2016 Time Performed: 12:56:44 PTAGE: 75 years EKG: Sinus rhythm Compared to prior tracing no significant change NORMAL ECG PREVIOUS TRACING : 01/19/2014 09.23 DOCTOR: Vaishali Garces Interpretating Date/Time 07/23/2016 16:46:46
--- NOTE | 2016-07-23 17:23 | RADRPT ---
EXAM DATE/TIME: 07/23/2016 16:13 [facility] COMPARISON: CT BRAIN W/O CONTRAST, July 22, 2016, 13:49. INDICATIONS : TIA. MEDICAL HISTORY : Chronic obstructive pulmonary disease. SURGICAL HISTORY : Cholecystectomy. Appendectomy. Hysterectomy. Right knee. Left hip. ENCOUNTER: Subsequent ACUITY: 2 day PAIN SCORE: 4/10 LOCATION: cranial TECHNIQUE: Multiplanar, multisequence MRI of the brain was performed without contrast. FINDINGS: CEREBRUM: The ventricles are normal for age. No evidence of midline shift, mass lesion, hemorrhage or acute in farction. No extraaxial fluid collections are seen. The pituitary gland and suprasellar cistern are normal in configuration. WHITE MATTER: No significant signal abnormalities are seen in the white matter. POSTERIOR FOSSA: The cerebellum and brainstem are intact. The 4th ventricle is midline. The cerebellopontine angle is unremarkable. The cerebellar tonsils are normal in position. DIFFUSION IMAGING: No focal areas of restricted diffusion are seen. No evidence of acute infarction. EXTRACRANIAL: The visualized portions of the orbits and paranasal sinuses are unremarkable. CONCLUSION: Normal examination. Raymond Lehman MD on July 23, 2016 at 17:21 Board Certified Radiologist. This report was verified electronically.
[2016-07-24] VITALS (7 sets, daily range): BP systolic 116–138; BP diastolic 56–65; PULSE 70–80; RESP 16–18; TEMP 96.8–97.8; O2SAT 93–96
[2016-07-24] MEDS: LEVOTHYROXINE SODIUM 75 MCG TAB PO SCH (05:44)
[2016-07-24] MEDS: LACTOBACILLUS ACIDOPHILUS TAB PO SCH (08:09)
[2016-07-24] MEDS: PREGABALIN 25 MG CAP PO SCH ×2 (08:09→21:35)
[2016-07-24] MEDS: SERTRALINE HCL 100 MG TAB PO SCH (08:09)
[2016-07-24] MEDS: PANTOPRAZOLE SOD 20 MG DELAYED RELEASE TAB PO SCH (08:09)
[2016-07-24] MEDS: predniSONE 10 MG TAB PO SCH (08:09)
[2016-07-24] MEDS: CYCLOBENZAPRINE HCL 10 MG TAB PO PRN ×2 (08:09→21:35)
[2016-07-24] MEDS: clonazePAM 0.5 MG TAB PO SCH ×3 (08:09→17:21)
[2016-07-24] MEDS: FLUTICASONE PROPIONATE 50 MCG/ACT 16 GM NASAL SPRAY SCH ×2 (08:11→21:39)
[2016-07-24] MEDS: SODIUM CHLORIDE 0.9% FLUSH 5 ML FLUSH IVF SCH ×2 (08:12→21:36)
[2016-07-24] MEDS: SODIUM CHLOR 0.9% 1000 ML INJ 1,000 ML IV SCH (08:12)
[2016-07-24] MEDS: traMADol HCL 50 MG TAB PO PRN ×2 (08:14→21:36)
[2016-07-24 10:13] LABS: AUTOMATED NEUTROPHIL # 10.7 TH/MM3 (1.8-7.7); BASOPHIL % 0.2 % (0.0-2.0); EOSINOPHIL # 0.2 TH/MM3 (0-0.4); EOSINOPHIL % 1.2 % (0.0-4.0); HEMATOCRIT 26.8 % (35.0-46.0); LYMPH % 12.4 % (9.0-44.0); LYMPHOCYTE # 1.6 TH/MM3 (1.0-4.8); MEAN CELL VOLUME 92.9 FL (80.0-100.0); MEAN CORPUSCULAR HEMOGLOBIN 30.6 PG (27.0-34.0); MEAN CORPUSCULAR HGB CONC 32.9 % (32.0-36.0); NEUT % 81.2 % (16.0-70.0); PLATELET COUNT 302 TH/MM3 (150-450); RED BLOOD COUNT 2.89 MIL/MM3 (4.00-5.30); RED CELL DISTRIBUTION WIDTH 15.5 % (11.6-17.2); WHITE BLOOD COUNT 13.1 TH/MM3 (4.0-11.0)
[2016-07-24 10:21] LABS: HEMO FLAGS AUTO DIFF
[2016-07-24 11:04] LABS: BICARBONATE 19.9 MEQ/L (21.0-32.0)
[2016-07-24 11:15] LABS: BANDS 2 % (0-6); BASOPHILS 1 % (0-2); EOSINOPHILS 1 % (0-4); METAMYELOCYTES 1 % (0-1); MYELOCYTES 1 % (0-0); NEUTROPHIL # MANUAL DIFF 11.4 TH/MM3 (1.8-7.7); PLATELET ESTIMATE SMEAR NORMAL (NORMAL); PLATELET MORPHOLOGY NORMAL (NORMAL); POLYS (SEG NEUTROPHILS) 83 % (16-70); SCAN/DIFF FINAL DIFF MANUAL; WBC DIFF SAMPLE 100
[2016-07-24 11:25] LABS: CKMB 12.9 NG/ML (0.5-3.6)
--- NOTE | 2016-07-24 13:05 | HHI.PR ---
Subjective Remarks doing better. Objective Vitals heart reg lung cta abd s/nt ext no edema bruising over ue/le's Vital Signs Date Time Temp Pulse Resp B/P Pulse Ox O2 Delivery O2 Flow Rate FiO2 07/24/16 09:09 18 07/24/16 09:09 18 07/24/16 08:14 97.8 74 16 116/64 95 07/24/16 04:00 97.1 80 18 123/56 95 07/23/16 20:00 99.3 85 18 150/66 92 07/23/16 16:16 96.7 86 18 131/60 92 07/23/16 07/23/16 07/24/16 15:00 23:00 07:00 Intake Total 480 ml Balance 480 ml Intake Oral 480 ml # Voids 4 3 # Bowel Movements 1 Result Diagram: 07/24/16 0952 07/24/16 0952 Imaging Last 72 hours Impressions Toe X-Ray 07/22/16 1748 Signed Impressions: Service Date/Time: Friday, July 22, 2016 17:57 - CONCLUSION: 1. Moderate to severe osteoarthritis at the first MTP with mild hallux valgus. Elias Montague MD Head CT 07/22/16 0000 Signed Impressions: Service Date/Time: Friday, July 22, 2016 13:49 - CONCLUSION: Normal examination for a patient of this age. Raymond Lehman MD Chest X-Ray 07/22/16 0000 Signed Impressions: Service Date/Time: Friday, July 22, 2016 13:38 - CONCLUSION: No acute disease. Shin Martin Jr., MD Cervical Spine MRI 07/22/16 0000 Signed Impressions: Service Date/Time: Friday, July 22, 2016 19:14 - CONCLUSION: 1. Multilevel degenerative disc disease as above. No acute fracture or spondylolisthesis. Prominent disc osteophyte complex on the left at C5-6 with left lateral recess and foraminal stenosis. No cord edema. Elias Montague MD Cervical Spine CT 07/22/16 0000 Signed Impressions: Service Date/Time: Friday, July 22, 2016 13:49 - CONCLUSION: 1. Degenerative changes as above. The most significant abnormality is on the left at C5-6. 2. No acute fracture identified. 3. The individual levels are dictated in detail above. Parveen Meza MD A/P Problem List: (1) Multiple falls Status: Acute Plan: Pt describes progressive weakness. falls. even some dysarthria and dysphagia at times describes neck pains and recently more rle weakness. rhabdomyolysis due to falls. maribell due to dehydration/rhabdo c5/6 cervical osteophyte general weakness overall improving today cont ivf receck cr and ck levels PT dvt prophylaxis f/u neuro w/up. MG panel. refused snf. plan [facility]. (2) Cervical osteophyte Status: Acute Plan: see above (3) Rhabdomyolysis Status: Acute Plan: see above (4) MARIBELL (acute kidney injury) Status: Acute Plan: see above (5) COPD (chronic obstructive pulmonary disease) Status: Chronic Plan: DuoNeb as needed. (6) HTN (hypertension) Status: Chronic Plan: Continue medications. (7) Spinal stenosis Status: Chronic Plan: Chronic. Mostly associated with lumbar spine. Doesn't seem to be an issue at this point. (8) Hypothyroid Status: Chronic (9) Depressed Status: Chronic Problem Qualifiers (1) Spinal stenosis: Qualified Code: M48.06 - Spinal stenosis of lumbar region Bj Carter MD Jul 24, 2016 13:05
--- NOTE | 2016-07-24 18:02 | HHI.PR ---
Review/Management Daily Summary data seen, mri brain negative she is comfortable in bed and admits much improvement appears to have little more neck rom dr hanson office records seen continue medical care and rehab, MG antibodies pending Subjective Subjective Comments No acute events reported No headache No chest pain No dyspnea Active Medications Current Medications Medications (Trade) Dose Ordered Sig/Deann Route Start Time Stop Time Status Last Admin (Zofran Inj) 4 mg Q6H PRN IV 07/22/16 18:30 (Tylenol) 650 mg Q4H PRN PO 07/22/16 18:30 (NS Flush) 2 ml BID IVF 07/22/16 21:00 07/24/16 08:12 IV Flush 2 ml 2 ml UNSCH PRN IVF 07/22/16 18:30 (NS 1000 ml Inj) 1,000 ml @ 100 mls/hr Q10H IV 07/22/16 18:30 07/24/16 08:12 (Tylenol) 500 mg Q6H PRN PO 07/22/16 21:00 (Ultram) 50 mg Q12H PRN PO 07/22/16 21:00 07/24/16 08:14 (Flexeril) 10 mg Q8H PRN PO 07/22/16 21:00 07/24/16 08:09 (KlonoPIN) 0.5 mg TID PO 07/23/16 09:00 07/24/16 17:21 (Flonase Kwesi Spr) 1 spray BID NA 07/22/16 22:00 07/24/16 08:11 (Lactinex) 1 tab DAILY PO 07/23/16 09:00 07/24/16 08:09 (Requip) 0.25 mg TID PO 07/23/16 09:00 07/24/16 17:21 (Zoloft) 100 mg DAILY PO 07/23/16 09:00 07/24/16 08:09 (Protonix) 20 mg DAILY PO 07/23/16 09:00 07/24/16 08:09 (Lyrica) 50 mg BID PO 07/22/16 22:00 07/24/16 08:09 (Synthroid) 75 mcg DAILY@0600 PO 07/23/16 06:00 07/24/16 05:44 (Deltasone) 10 mg DAILY PO 07/23/16 09:00 07/24/16 08:09 Allergies Allergies Coded Allergies Adhesives (Unverified Allergy, Severe, SKIN TEAR, 01/19/14) Exam I&O / VS 07/23/16 07/23/16 07/24/16 15:00 23:00 07:00 Intake Total 480 ml Balance 480 ml Intake Oral 480 ml # Voids 4 3 # Bowel Movements 1 Vital Signs Date Time Temp Pulse Resp B/P Pulse Ox O2 Delivery O2 Flow Rate FiO2 07/24/16 13:28 96.8 70 16 116/56 95 07/24/16 11:14 93 21 07/24/16 09:09 18 07/24/16 09:09 18 07/24/16 08:14 97.8 74 16 116/64 95 07/24/16 04:00 97.1 80 18 123/56 95 07/23/16 20:00 99.3 85 18 150/66 92 Objective Radiology Results Last 48 hours Impressions Brain MRI 07/23/16 0000 Signed Impressions: Service Date/Time: Saturday, July 23, 2016 16:13 - CONCLUSION: Normal examination. Raymond Lehman MD Micro and Labs Laboratory Tests Test 07/24/16 09:52 White Blood Count 13.1 Red Blood Count 2.89 Hemoglobin 8.8 Hematocrit 26.8 Mean Corpuscular Volume 92.9 Mean Corpuscular Hemoglobin 30.6 Mean Corpuscular Hemoglobin 32.9 Concent Red Cell Distribution Width 15.5 Platelet Count 302 Mean Platelet Volume 7.4 Neutrophils (%) (Auto) 81.2 Lymphocytes (%) (Auto) 12.4 Monocytes (%) (Auto) 5.0 Eosinophils (%) (Auto) 1.2 Basophils (%) (Auto) 0.2 Neutrophils # (Auto) 10.7 Lymphocytes # (Auto) 1.6 Monocytes # (Auto) 0.7 Eosinophils # (Auto) 0.2 Basophils # (Auto) 0.0 CBC Comment AUTO DIFF Differential Total Cells 100 Counted Neutrophils % (Manual) 83 Band Neutrophils % 2 Lymphocytes % 9 Monocytes % 2 Eosinophils % 1 Basophils % 1 Neutrophils # (Manual) 11.4 Metamyelocytes 1 Myelocytes 1 Differential Comment FINAL DIFF MANUAL Platelet Estimate NORMAL Platelet Morphology Comment NORMAL Red Cell Morphology Comment NORMAL Sodium Level 138 Potassium Level 4.0 Chloride Level 108 Carbon Dioxide Level 19.9 Anion Gap 10 Blood Urea Nitrogen 19 Creatinine 1.23 Estimat Glomerular Filtration 43 Rate Random Glucose 142 Calcium Level 8.0 Total Creatine Kinase 1938 Creatine Kinase MB 12.9 Creatine Kinase MB % 0.7 Date/Time Procedure Status Source Growth 07/22/16 20:35 Urine Culture - Final Complete Urine Clean Catch 10-50,000 CFU/ML MIXED GRAM POSITIVE ... Nicolasa Jensen MD Jul 24, 2016 18:01
[2016-07-25] VITALS (7 sets, daily range): BP systolic 121–156; BP diastolic 56–73; PULSE 64–73; RESP 18–20; TEMP 96.8–99.1; O2SAT 92–96
[2016-07-25 03:54] LABS: STRIATED MUCLE AB TITER ND (<1:40)
[2016-07-25] MEDS: LEVOTHYROXINE SODIUM 75 MCG TAB PO SCH (05:23)
[2016-07-25 08:27] LABS: BICARBONATE 22.9 MEQ/L (21.0-32.0); POTASSIUM 3.9 MEQ/L (3.5-5.1)
[2016-07-25 08:42] LABS: CKMB 5.4 NG/ML (0.5-3.6)
[2016-07-25] MEDS: SODIUM CHLORIDE 0.9% FLUSH 5 ML FLUSH IVF SCH ×2 (09:00→21:00)
[2016-07-25] MEDS: SERTRALINE HCL 100 MG TAB PO SCH (09:07)
[2016-07-25] MEDS: clonazePAM 0.5 MG TAB PO SCH ×3 (09:07→18:55)
[2016-07-25] MEDS: predniSONE 10 MG TAB PO SCH (09:07)
[2016-07-25] MEDS: CYCLOBENZAPRINE HCL 10 MG TAB PO PRN (09:08)
[2016-07-25] MEDS: PANTOPRAZOLE SOD 20 MG DELAYED RELEASE TAB PO SCH (09:08)
[2016-07-25] MEDS: PREGABALIN 25 MG CAP PO SCH ×2 (09:08→22:17)
[2016-07-25] MEDS: LACTOBACILLUS ACIDOPHILUS TAB PO SCH (09:08)
[2016-07-25] MEDS: traMADol HCL 50 MG TAB PO PRN (09:08)
[2016-07-25] MEDS: FLUTICASONE PROPIONATE 50 MCG/ACT 16 GM NASAL SPRAY SCH ×2 (09:10→22:17)
--- NOTE | 2016-07-25 10:31 | HHI.PR ---
Subjective Remarks in chair somewhat weak. c/o neck pains Objective Vitals heart reg lung cta abd snt ext no edema Vital Signs Date Time Temp Pulse Resp B/P Pulse Ox O2 Delivery O2 Flow Rate FiO2 07/25/16 09:13 97.7 68 18 143/66 94 07/25/16 04:00 97.1 73 18 129/56 92 07/25/16 00:00 97.6 67 18 132/67 95 07/24/16 23:00 78 07/24/16 20:00 97.8 75 18 138/65 93 07/24/16 16:00 97.0 76 18 129/60 96 07/24/16 13:28 96.8 70 16 116/56 95 07/24/16 11:14 93 21 07/24/16 07/24/16 07/25/16 15:00 23:00 07:00 Intake Total 390 ml Balance 390 ml Intake Oral 390 ml # Voids 6 Result Diagram: 07/24/16 0952 07/25/16 0650 Imaging Last 72 hours Impressions Toe X-Ray 07/22/16 1748 Signed Impressions: Service Date/Time: Friday, July 22, 2016 17:57 - CONCLUSION: 1. Moderate to severe osteoarthritis at the first MTP with mild hallux valgus. Elias Montague MD Head CT 07/22/16 0000 Signed Impressions: Service Date/Time: Friday, July 22, 2016 13:49 - CONCLUSION: Normal examination for a patient of this age. Raymond Lehman MD Chest X-Ray 07/22/16 0000 Signed Impressions: Service Date/Time: Friday, July 22, 2016 13:38 - CONCLUSION: No acute disease. Shin Martin Jr., MD Cervical Spine MRI 07/22/16 0000 Signed Impressions: Service Date/Time: Friday, July 22, 2016 19:14 - CONCLUSION: 1. Multilevel degenerative disc disease as above. No acute fracture or spondylolisthesis. Prominent disc osteophyte complex on the left at C5-6 with left lateral recess and foraminal stenosis. No cord edema. Elias Montague MD Cervical Spine CT 07/22/16 0000 Signed Impressions: Service Date/Time: Friday, July 22, 2016 13:49 - CONCLUSION: 1. Degenerative changes as above. The most significant abnormality is on the left at C5-6. 2. No acute fracture identified. 3. The individual levels are dictated in detail above. Parveen Meza MD A/P Problem List: (1) Multiple falls Status: Acute Plan: Pt describes progressive weakness. falls. even some dysarthria and dysphagia at times describes neck pains and recently more rle weakness. rhabdomyolysis due to falls. maribell due to dehydration/rhabdo c5/6 cervical osteophyte general weakness continues to improve cont ivf discussed oob today and try to assure pt stable for d/c by tomorow morning. she refuses snf. PT dvt prophylaxis f/u neuro w/up. MG panel. (2) Cervical osteophyte Status: Acute Plan: see above (3) Rhabdomyolysis Status: Acute Plan: see above (4) MARIBELL (acute kidney injury) Status: Acute Plan: see above (5) COPD (chronic obstructive pulmonary disease) Status: Chronic Plan: DuoNeb as needed. (6) HTN (hypertension) Status: Chronic Plan: Continue medications. (7) Spinal stenosis Status: Chronic Plan: Chronic. Mostly associated with lumbar spine. Doesn't seem to be an issue at this point. (8) Hypothyroid Status: Chronic (9) Depressed Status: Chronic Problem Qualifiers (1) Spinal stenosis: Qualified Code: M48.06 - Spinal stenosis of lumbar region Bj Carter MD Jul 25, 2016 10:31
[2016-07-25] MEDS: SODIUM CHLOR 0.9% 1000 ML INJ 1,000 ML IV SCH ×2 (16:30→23:22)
[2016-07-25 17:55] LABS: ACETYLCHOLINE REC BINDING LESS THAN 0.30 nmol/L (())
[2016-07-25] MEDS: ACETAMINOPHEN 500 MG CPLT PO PRN (22:18)
[2016-07-26 00:22] VITALS: BP 145/66; PULSE 72; RESP 20; TEMP 97.4; O2SAT 94
[2016-07-26 04:45] VITALS: BP 166/74; PULSE 62; RESP 20; TEMP 97.5; O2SAT 93
[2016-07-26] MEDS: ACETAMINOPHEN 500 MG CPLT PO PRN (06:01)
[2016-07-26] MEDS: LEVOTHYROXINE SODIUM 75 MCG TAB PO SCH (06:01)
[2016-07-26 08:00] VITALS: BP 173/72; PULSE 74; RESP 18; TEMP 96.9; O2SAT 95
[2016-07-26] MEDS: FLUTICASONE PROPIONATE 50 MCG/ACT 16 GM NASAL SPRAY SCH (09:00)
[2016-07-26] MEDS: SODIUM CHLORIDE 0.9% FLUSH 5 ML FLUSH IVF SCH (09:00)
[2016-07-26] MEDS: PANTOPRAZOLE SOD 20 MG DELAYED RELEASE TAB PO SCH (09:13)
[2016-07-26] MEDS: traMADol HCL 50 MG TAB PO PRN (09:13)
[2016-07-26] MEDS: clonazePAM 0.5 MG TAB PO SCH ×2 (09:13→12:16)
[2016-07-26] MEDS: predniSONE 10 MG TAB PO SCH (09:13)
[2016-07-26] MEDS: CYCLOBENZAPRINE HCL 10 MG TAB PO PRN (09:13)
[2016-07-26] MEDS: PREGABALIN 25 MG CAP PO SCH (09:13)
[2016-07-26] MEDS: LACTOBACILLUS ACIDOPHILUS TAB PO SCH (09:13)
[2016-07-26] MEDS: SERTRALINE HCL 100 MG TAB PO SCH (09:13)
--- NOTE | 2016-07-26 09:26 | HHI.PR ---
Subjective Remarks stronger but family wants her to go to snf. Objective Vitals hear reg lung cta abd s/nt ext no edema Vital Signs Date Time Temp Pulse Resp B/P Pulse Ox O2 Delivery O2 Flow Rate FiO2 07/26/16 08:00 96.9 74 18 173/72 95 07/26/16 04:45 97.5 62 20 166/74 93 07/26/16 00:22 97.4 72 20 145/66 94 07/25/16 20:54 99.1 68 19 121/72 93 07/25/16 19:49 65 07/25/16 16:09 96.8 72 20 156/73 95 07/25/16 12:11 96.8 64 18 122/59 96 07/25/16 07/25/16 07/26/16 15:00 23:00 07:00 Intake Total 480 ml Balance 480 ml Intake Oral 480 ml # Voids 2 1 0 # Bowel Movements 1 Result Diagram: 07/24/16 0952 07/25/16 0650 Imaging Last 72 hours Impressions Toe X-Ray 07/22/16 1748 Signed Impressions: Service Date/Time: Friday, July 22, 2016 17:57 - CONCLUSION: 1. Moderate to severe osteoarthritis at the first MTP with mild hallux valgus. Elias Montague MD Head CT 07/22/16 0000 Signed Impressions: Service Date/Time: Friday, July 22, 2016 13:49 - CONCLUSION: Normal examination for a patient of this age. Raymond Lehman MD Chest X-Ray 07/22/16 0000 Signed Impressions: Service Date/Time: Friday, July 22, 2016 13:38 - CONCLUSION: No acute disease. Shin Martin Jr., MD Cervical Spine MRI 07/22/16 0000 Signed Impressions: Service Date/Time: Friday, July 22, 2016 19:14 - CONCLUSION: 1. Multilevel degenerative disc disease as above. No acute fracture or spondylolisthesis. Prominent disc osteophyte complex on the left at C5-6 with left lateral recess and foraminal stenosis. No cord edema. Elias Montague MD Cervical Spine CT 07/22/16 0000 Signed Impressions: Service Date/Time: Friday, July 22, 2016 13:49 - CONCLUSION: 1. Degenerative changes as above. The most significant abnormality is on the left at C5-6. 2. No acute fracture identified. 3. The individual levels are dictated in detail above. Parveen Meza MD A/P Problem List: (1) Multiple falls Status: Acute Plan: Pt describes progressive weakness. falls. even some dysarthria and dysphagia at times describes neck pains and recently more rle weakness. rhabdomyolysis due to falls. maribell due to dehydration/rhabdo c5/6 cervical osteophyte general weakness anemia after hydration. no sign bleeding. continues to improve will need snf for weakness. f/u neurology. follow c5/6 osteophyte f/u pcp for repeat h/h and any anemia w/up as needed. d/c today (2) Cervical osteophyte Status: Acute Plan: see above (3) Rhabdomyolysis Status: Acute Plan: see above (4) MARIBELL (acute kidney injury) Status: Acute Plan: see above (5) COPD (chronic obstructive pulmonary disease) Status: Chronic Plan: DuoNeb as needed. (6) HTN (hypertension) Status: Chronic Plan: Continue medications. (7) Spinal stenosis Status: Chronic Plan: Chronic. Mostly associated with lumbar spine. Doesn't seem to be an issue at this point. (8) Hypothyroid Status: Chronic (9) Depressed Status: Chronic Problem Qualifiers (1) Spinal stenosis: Qualified Code: M48.06 - Spinal stenosis of lumbar region Bj Carter MD Jul 26, 2016 09:26
[2016-07-26] MEDS ORDERED: CLON.5 PO (09:33)
[2016-07-26] MEDS ORDERED: ULTR50TA5 PO (09:33)
[2016-07-26] MEDS ORDERED: PRED10 PO (09:34)
[2016-07-26] MEDS ORDERED: CYCL1TAB29 PO (09:35)
--- NOTE | 2016-07-26 09:35 | HHI.DCPOC ---
Discharge Care Plan Diagnosis: (1) Rhabdomyolysis (2) MARVEL (acute kidney injury) (3) Multiple falls (4) Cervical osteophyte (5) HTN (hypertension) (6) COPD (chronic obstructive pulmonary disease) Goals to Promote Your Health * To prevent worsening of your condition and complications * To maintain your health at the optimal level Directions to Meet Your Goals Take your medications as prescribed Follow your dietary instruction Follow activity as directed Keep your appointments as scheduled Take your immunizations and boosters as scheduled If your symptoms worsen call your PCP, if no PCP go to Urgent Care Center or Emergency Room Smoking is Dangerous to Your Health. Avoid second hand smoke Call the 24-hour hour crisis hotline for domestic abuse at Bj Carter MD Jul 26, 2016 09:35
[2016-07-26 11:06] VITALS: O2SAT 97
[2016-07-26 12:00] VITALS: BP 131/62; PULSE 75; RESP 18; TEMP 98.4; O2SAT 96
[2016-07-26] MEDS: SODIUM CHLOR 0.9% 1000 ML INJ 1,000 ML IV SCH (12:30)
--- NOTE | 2016-07-28 15:27 | HHI.DS ---
Discharge Summary Admission Date Jul 22, 2016 at 18:22 Discharge Date: Jul 26, 2016 Admitting Diagnosis intractable neck pain. Acute kidney injury. Leukocytosis. (1) Multiple falls Diagnosis: Principal (2) Cervical osteophyte Diagnosis: Principal (3) Rhabdomyolysis Diagnosis: Principal (4) MARVEL (acute kidney injury) Diagnosis: Principal (5) COPD (chronic obstructive pulmonary disease) Diagnosis: Secondary (6) HTN (hypertension) Diagnosis: Secondary (7) Spinal stenosis Diagnosis: Secondary (8) Hypothyroid Diagnosis: Secondary (9) Depressed Diagnosis: Secondary Brief History 75-year-old female with history of vertigo/disequilibrium, COPD, osteoarthritis , anxiety, presents to emergency department for evaluation of significant neck pain and inability to lift her head. Patient states that about 6 weeks ago she began having right sided numbness and paralysis that has been intermittent. She has been worked up by Dr. Farfan outpatient and states that he has not found out why this is happening. Review of outpatient charts reveals multiple visits to her neurologist over the last several years. The right-sided weakness and tingling and numbness seem to have happened somewhere in early April 2016. Dr. Farfan's note seemed to associate the symptoms with TIA or left middle cerebral artery CVA. She states she has had several falls due to this with her most recent fall last evening in her garage. She did strike her head but following one of the falls she has been having severe pain at the base of her neck and inability to lift her neck. She states she cannot swallow well secondary to not being able to lift up her head and she feels that her voice is different. She denies any recent illnesses, fever, chills. No chest pain or tightness. No difficulty breathing. She has suffered multiple bruises due to the falls. She still lives alone and gets somewhat anxious when I mention that she should likely be in assisted living or more supervised environment. Her son in [place] is reportedly coming to the area in July to discuss her moving back to [place]. Workup thus far reveals no acute findings on imaging of her neck and head. She does have significant degenerative changes and osteophytes in her cervical spine. Abdomen were noted for elevated creatinine above 4 whereas her baseline seems to be around 1.4 or 1.5. CPK is quite elevated as well in the 6,000 range. White blood cell count also significantly elevated in the mid-20s. She has been given IV fluids and Tylenol in the ER. When I see her she is actually able to move her head and neck much better but still has pain and occasional spasm particularly on the right side of her neck. CBC/BMP: 07/24/16 0952 07/25/16 0650 Hospital Course Pt describes progressive weakness. falls. even some dysarthria and dysphagia at times describes neck pains and recently more rle weakness. rhabdomyolysis due to falls.marvel due to dehydration/rhabdo c5/6 cervical osteophyte general weakness anemia after hydration. no sign bleeding. continues to improve.will need snf for weakness. f/u neurology. follow c5/6 osteophyte f/u pcp for repeat h/h and any anemia w/up as needed. myasthenia gravis panel negative Pt Condition on Discharge: Stable Discharge Disposition: Discharge to SNF Discharge Instructions DIET: Follow Instructions for: As Tolerated, No Restrictions Activities you can perform: Regular-No Restrictions Follow up Referrals: Neurology - 2 Weeks with Radhames Farfan PhD PCP Follow-up - 2 Weeks New Medications: Clonazepam (Klonopin) 0.5 Mg Tab 0.5 MG PO TID anxiety #30 TAB Cyclobenzaprine (Flexeril) 10 Mg Tab 10 MG PO Q8H PRN neck spasm #30 TAB Tramadol (Ultram) 50 Mg Tab 50 MG PO Q6HR PRN pain level 4-10 #30 TAB Continued Medications: Albuterol Sulfate 8 GM Inhaler (Ventolin Hfa) 8 Gm Aero 2 PUFF INH Q6 * SHAKE WELL BEFORE USE * PRN SHORTNESS OF BREATH #1 BOX Ascorbic Acid (Vitamin C) 1,000 Mg Tab 1000 MG PO DAILY TAB () 1 TAB PO DAILY TAB Cholecalciferol (Vitamin D3) 1,000 Unit Tab 1000 UNIT PO DAILY TAB Cyanocobalamin (Vitamin B12) 100 Mcg Tab 250 MCG PO DAILY TAB Fluticasone Propionate (Flonase) 0.05 % Naspr 2 SPR NA BID 2 SPRAYS EACH NOSTRIL SPRAY Folic Acid (Folate) 400 Mcg Tab 400 MCG PO DAILY TAB Lactobacillus (Floranex) Tab 1 TAB PO DAILY TAB Levothyroxine Sodium (Levothyroxine Sodium) 25 Mcg Tab 1 TAB PO DAILY TAB Omeprazole (Hm Omeprazole) 20 Mg Tab 20 MG PO DAILY TAB Prednisone (Prednisone) 10 Mg Tab 10 MG PO DAILY Ref 0 TAB Pregabalin (Lyrica) 50 Mg Cap 50 MG PO BID CAP Pyridoxine Hcl (Vitamin B-6) 25 Mg Tab 50 MG PO DAILY TAB Ropinirole Hcl (Requip) 0.25 Mg Tab 0.25 MG PO TID RLS #30 TAB Sertraline 100 mg (Sertraline 100 mg) 100 Mg Tab 100 MG PO DAILY TAB Tiotropium [place] Monohydrate (Spiriva Handihaler) 18 Mcg Cap 1 DOSE INH DAILY DO NOT SWALLOW CAPSULES copd #5 CAP Vitamin E (Vitamin E-400) 400 Units Cap 400 UNITS PO DAILY CAP Zinc (Zinc) 50 Mg Tab 1 TAB PO DAILY Discontinued Medications: Alprazolam (Xanax 0.25 Mg) Alprazolam 0.25 mg Tab 1 TAB PO DAILY PRN ANXIETY #10 TAB Carisoprodol (Carisoprodol) 350 Mg Tab 350 MG PO Q8H PRN SPASM TAB Clonazepam (Klonopin) 0.5 Mg Tab 0.5 MG PO TID ANXIETY #30 TAB Enoxaparin Sodium (Lovenox) 30 Mg/0.3 Ml Inj 30 MG SQ Q12H DVT PROPHYLAXIS Days 10 INJ Lovastatin (Lovastatin) 40 Mg Tab 40 MG PO DAILY TAB Oxycodone-Acetaminophen 5-325 mg (Percocet 5-325 mg) Oxycodone 5/325 Acetaminophen Tab 1-2 TAB PO Q4H PRN PAIN #50 TAB Bj Carter MD Jul 28, 2016 15:27
[2016-09-16] MEDS ORDERED: OMEP20TA PO (13:16)
[2016-09-16] MEDS ORDERED: FERR325T PO (13:16)
[2016-09-16] MEDS ORDERED: DONE10TA7 PO (13:16)
[2016-09-16] MEDS ORDERED: PLAV75TA29 PO (13:16)
[2016-09-16] MEDS ORDERED: CYMB30CA PO (13:16)
[2016-09-16] MEDS ORDERED: FORM1POW2 INH (13:16)
[2016-09-16] MEDS ORDERED: CHERSYP2 PO (13:16)
[2016-09-16] MEDS ORDERED: ASPI81CH CHEW (13:16)
[2016-09-16] MEDS ORDERED: L-LY500T4 (13:16)
[2016-09-16] MEDS ORDERED: CIPR100T2 PO (13:16)
[2016-09-16] MEDS ORDERED: LOSA25TA PO (13:16)
[2016-09-16] MEDS ORDERED: GABA300C5 PO (13:16)
[2016-09-16] MEDS ORDERED: LEVO75TA3 PO (13:16)
[2016-09-16] MEDS ORDERED: MONTPOW2 (13:16)
[2016-09-16] MEDS ORDERED: LYRI100C PO (13:16)
[2016-09-16] MEDS ORDERED: CRANCAP2 PO (13:16)
[2016-09-16] MEDS ORDERED: METH500T3 PO (13:16)
[2016-09-16] MEDS ORDERED: MELO7.5T4 PO (13:16)
[2016-09-16] MEDS ORDERED: BENZ1CAP34 PO (13:16)
[2016-09-16] MEDS ORDERED: ATOR10TA15 PO (13:16)
[2016-09-16] MEDS ORDERED: FOLI400T PO (13:16)
[2016-09-16] MEDS ORDERED: ALBU.5I NEB (13:16)
[2016-09-16] MEDS ORDERED: VENTAER INH (13:17)
[2016-09-16] MEDS ORDERED: ROPI.25 PO (13:17)
[2016-09-16] MEDS ORDERED: VITA100021 SL (13:17)
[2016-09-16] MEDS ORDERED: SERT-129 PO (13:17)
[2016-09-16] MEDS ORDERED: PYRI1TAB (13:17)
[2016-09-16] MEDS ORDERED: VITATAB20 PO (13:17)
[2016-09-16] MEDS ORDERED: VESI5TAB PO (13:17)
[2016-09-16] MEDS ORDERED: CHOL100025 CHEW (13:17)
[2016-09-16] MEDS ORDERED: TRIA37.53 PO (13:17)
[2016-09-16] MEDS ORDERED: CHEL50TA (13:17)
[2016-10-08] MEDS ORDERED: ASPI325T PO (10:01)
== END 2016-07-26 15:07 | DRG 552 ==
LOC: NEPA 11:43 → NEDA 18:22 → N05B 21:43
PROVIDERS: ADMIT Hospitalist; ATTEND Hospitalist
DX: M54.2 Cervicalgia (principal); N17.9 Acute kidney failure, unspecified; M62.82 Rhabdomyolysis; J44.9 Chronic obstructive pulmonary disease, unspecified; E86.0 Dehydration; I12.9 Hypertensive chronic kidney disease with stage 1 through stage 4 chronic kidney disease, or unspecified chronic kidney disease; N18.3 Chronic kidney disease, stage 3 (moderate); M25.78 Osteophyte, vertebrae; M48.06 Spinal stenosis, lumbar region; M62.81 Muscle weakness (generalized); R29.6 Repeated falls; E03.9 Hypothyroidism, unspecified; D50.9 Iron deficiency anemia, unspecified; Z86.73 Personal history of transient ischemic attack (TIA), and cerebral infarction without residual deficits; F41.8 Other specified anxiety disorders; E78.5 Hyperlipidemia, unspecified; M19.90 Unspecified osteoarthritis, unspecified site; Z87.891 Personal history of nicotine dependence
CPT/HCPCS: 70450; 70551; 71010; 72125; 72141; 73660; 80048; 80053; 81001; 82550; 82552; 82607; 83519; 84443; 84484; 85007; 85025; 85027; 85610; 85730; 86255; 87086; 93005; J7030; J7512

== ENCOUNTER 2016-09-07 10:13 | Emergency (ER) | payer MEDICARE, OTHER ==
[~2016-09-07 10:13] MED LIST changes: -ALPR.25 PO; -CARI350T19 PO; +CYCL1TAB29 PO; -ENOX30P SQ; -LOVA40TA PO; -PERC5TAB12 PO; +PRED10 PO; +ULTR50TA5 PO
[2016-09-16] MEDS ORDERED: CIPR100T2 PO (13:16)
[2016-09-16] MEDS ORDERED: BENZ1CAP34 PO (13:16)
[2016-09-16] MEDS ORDERED: FERR325T PO (13:16)
[2016-09-16] MEDS ORDERED: L-LY500T4 (13:16)
[2016-09-16] MEDS ORDERED: GABA300C5 PO (13:16)
[2016-09-16] MEDS ORDERED: LEVO75TA3 PO (13:16)
[2016-09-16] MEDS ORDERED: ATOR10TA15 PO (13:16)
[2016-09-16] MEDS ORDERED: FOLI400T PO (13:16)
[2016-09-16] MEDS ORDERED: CRANCAP2 PO (13:16)
[2016-09-16] MEDS ORDERED: LOSA25TA PO (13:16)
[2016-09-16] MEDS ORDERED: MONTPOW2 (13:16)
[2016-09-16] MEDS ORDERED: OMEP20TA PO (13:16)
[2016-09-16] MEDS ORDERED: LYRI100C PO (13:16)
[2016-09-16] MEDS ORDERED: CHERSYP2 PO (13:16)
[2016-09-16] MEDS ORDERED: ALBU.5I NEB (13:16)
[2016-09-16] MEDS ORDERED: FORM1POW2 INH (13:16)
[2016-09-16] MEDS ORDERED: METH500T3 PO (13:16)
[2016-09-16] MEDS ORDERED: MELO7.5T4 PO (13:16)
[2016-09-16] MEDS ORDERED: CYMB30CA PO (13:16)
[2016-09-16] MEDS ORDERED: PLAV75TA29 PO (13:16)
[2016-09-16] MEDS ORDERED: DONE10TA7 PO (13:16)
[2016-09-16] MEDS ORDERED: ASPI81CH CHEW (13:16)
[2016-09-16] MEDS ORDERED: TRIA37.53 PO (13:17)
[2016-09-16] MEDS ORDERED: ROPI.25 PO (13:17)
[2016-09-16] MEDS ORDERED: CHEL50TA (13:17)
[2016-09-16] MEDS ORDERED: VESI5TAB PO (13:17)
[2016-09-16] MEDS ORDERED: VITA100021 SL (13:17)
[2016-09-16] MEDS ORDERED: PYRI1TAB (13:17)
[2016-09-16] MEDS ORDERED: SERT-129 PO (13:17)
[2016-09-16] MEDS ORDERED: CHOL100025 CHEW (13:17)
[2016-09-16] MEDS ORDERED: VITATAB20 PO (13:17)
[2016-09-16] MEDS ORDERED: VENTAER INH (13:17)
[2016-10-08] MEDS ORDERED: ASPI325T PO (10:01)
== END 2016-09-07 15:01 | disposition left against medical advice (07) ==
LOC: CANPREER → PHED 10:13
DX: S01.82XA Laceration with foreign body of other part of head, initial encounter (principal)

== ENCOUNTER 2016-09-07 10:13 | Emergency (ER) | payer MEDICARE, OTHER ==
[~2016-09-07] VITALS: Ht 157.5 cm; Wt 69.0 kg
[2016-09-07 11:09] VITALS: BP 118/56; PULSE 67; RESP 18; TEMP 97.6; O2SAT 97
--- NOTE | 2016-09-07 11:19 | PD ---
HPI Chief Complaint: Fall Time Seen by Provider: 11:14 Travel History International Travel<30 days: No Contact w/Intl Traveler<30days: No Traveled to known affect area: No History of Present Illness HPI Patient presents for evaluation of left forehead laceration. States that it occurred approximately 8 PM last night when she fell from a stool and hit her head. She was wearing glasses. The glasses did break. Denies any loss of consciousness. Unable to recall tetanus. She is not on any blood thinners. PFSH Past Medical History Arthritis: Yes Cancer: No Cardiovascular Problems: No COPD: Yes Diabetes: No Diminished Hearing: No Endocrine: Yes Gastrointestinal Disorders: Yes (ULCER HX) Genitourinary: Yes (kidney injury) Hepatitis: No Hiatal Hernia: No Immune Disorder: No Musculoskeletal: Yes Neurologic: No Psychiatric: Yes (ANXIETY) Reproductive: No Respiratory: Yes Thyroid Disease: Yes Tetanus Vaccination: > 5 Years ?: Not Past Surgical History Abdominal Surgery: Yes AICD: No Cholecystectomy: Yes Endocrine Surgery: No Gynecologic Surgery: Yes (hysterectomy) Joint Replacement: Yes (RIGHT KNEE, LEFT HIP) Oral Surgery: Yes (T & A) Pacemaker: No Other Surgery: Yes Social History Alcohol Use: No Tobacco Use: No Substance Use: No Allergies-Medications (Allergen,Severity, Reaction): Coded Allergies: Adhesives (Unverified Allergy, Severe, SKIN TEAR, 01/19/14) Reported Meds & Prescriptions Reported Meds & Active Scripts Active Flexeril (Cyclobenzaprine HCl) 10 Mg Tab 10 Mg PO Q8H PRN Ultram (Tramadol HCl) 50 Mg Tab 50 Mg PO Q6HR PRN Klonopin (Clonazepam) 0.5 Mg Tab 0.5 Mg PO TID Bedside Commobedside Bedside Mis U Walker Front Wheel ([email or web address]) Device 1 Unit PRN Requip (Ropinirole HCl) 0.25 Mg Tab 0.25 Mg PO TID Ventolin Hfa (Albuterol Sulfate) 8 Gm Aero 2 Puff INH Q6 PRN * SHAKE WELL BEFORE USE * Reported Prednisone 10 Mg Tab 10 Mg PO DAILY Spiriva Handihaler (Tiotropium [place]) 18 Mcg Cap 1 Dose INH DAILY DO NOT SWALLOW CAPSULES Lyrica (Pregabalin) 50 Mg Cap 50 Mg PO BID Levothyroxine Sodium 25 Mcg Tab 1 Tab PO DAILY Floranex (Lactobacillus) Tab 1 Tab PO DAILY Zinc 50 Mg Tab 1 Tab PO DAILY Vitamin C (Ascorbic Acid) 1,000 Mg Tab 1,000 Mg PO DAILY Vitamin E-400 (Vitamin E) 400 Units Cap 400 Units PO DAILY Vitamin D3 (Cholecalciferol) 1,000 Unit Tab 1,000 Unit PO DAILY Calcium 1000 + D 1 Tab PO DAILY Folate (Folic Acid) 400 Mcg Tab 400 Mcg PO DAILY Vitamin B-6 (Pyridoxine Hcl) 25 Mg Tab 50 Mg PO DAILY Vitamin B12 (Cyanocobalamin) 100 Mcg Tab 250 Mcg PO DAILY Flonase (Fluticasone Propionate) 0.05 % Naspr 2 Spr NA BID 2 SPRAYS EACH NOSTRIL Hm Omeprazole (Omeprazole) 20 Mg Tab 20 Mg PO DAILY Sertraline 100 mg (Sertraline HCl) 100 Mg Tab 100 Mg PO DAILY Review of Systems General / Constitutional: No: Fever Eyes: No: Visual changes HENT: No: Headaches Cardiovascular: No: Chest Pain or Discomfort Respiratory: No: Shortness of Breath Gastrointestinal: No: Abdominal Pain Genitourinary: No: Dysuria Musculoskeletal: No: Pain Skin: No Rash Neurologic: No: Weakness Psychiatric: No: Depression Endocrine: No: Polydipsia Hematologic/Lymphatic: No: Easy Bruising Physical Exam Narrative GENERAL: Well-nourished, well-developed patient. SKIN: Warm and dry. HEAD: Normocephalic. Ecchymosis with a hematoma left upper forehead there is a small superficial laceration measuring approximately 1.5 cm EYES: No scleral icterus. No injection or drainage. NECK: Supple, trachea midline. No JVD or lymphadenopathy. CARDIOVASCULAR: Regular rate and rhythm without murmurs, gallops, or rubs. RESPIRATORY: Breath sounds equal bilaterally. No accessory muscle use. GASTROINTESTINAL: Abdomen soft, non-tender, nondistended. MUSCULOSKELETAL: No cyanosis, or edema. BACK: Nontender without obvious deformity. No CVA tenderness. Data Data Last Documented VS Vital Signs Date Time Temp Pulse Resp B/P Pulse Ox O2 Delivery O2 Flow Rate FiO2 09/07/16 11:09 97.6 67 18 118/56 97 MDM Medical Decision Making Medical Screen Exam Complete: Yes Emergency Medical Condition: Yes Differential Diagnosis Hematoma, laceration, subdural hematoma Narrative Course Assessment and plan discussed with patient and friend at bedside. Tetanus was given. Wound was cleaned and dressed in sterile fashion. Diagnosis Primary Impression: Forehead contusion Qualified Code: S00.83XA - Forehead contusion, initial encounter Patient Instructions: General Instructions Additional Instructions: Encouraged rest fluids and Motrin. Encouraged to return to the emergency with any worsening headache. Discussed general wound care. Follow-up with PCP. Med/Other Pt SpecificInfo: No Meds Exist/No RX given Disposition: 01 DISCHARGE HOME Condition: Good Rodney Scott MD Sep 07, 2016 11:18
[2016-09-07] MEDS ORDERED: DIPHTH/TETANUS/ACEL PERTUSSIS (BOOSTER) 0.5 ML VIAL/PFS IM ONE (16:00)
[2016-09-07] MEDS ORDERED: TETANUS/DIPHTHERIA TOXOID ADULT 0.5 ML VIAL IM ONE (16:00)
[2016-09-16] MEDS ORDERED: FERR325T PO (13:16)
[2016-09-16] MEDS ORDERED: CHERSYP2 PO (13:16)
[2016-09-16] MEDS ORDERED: LEVO75TA3 PO (13:16)
[2016-09-16] MEDS ORDERED: LOSA25TA PO (13:16)
[2016-09-16] MEDS ORDERED: LYRI100C PO (13:16)
[2016-09-16] MEDS ORDERED: ASPI81CH CHEW (13:16)
[2016-09-16] MEDS ORDERED: GABA300C5 PO (13:16)
[2016-09-16] MEDS ORDERED: CIPR100T2 PO (13:16)
[2016-09-16] MEDS ORDERED: MONTPOW2 (13:16)
[2016-09-16] MEDS ORDERED: OMEP20TA PO (13:16)
[2016-09-16] MEDS ORDERED: FOLI400T PO (13:16)
[2016-09-16] MEDS ORDERED: FORM1POW2 INH (13:16)
[2016-09-16] MEDS ORDERED: DONE10TA7 PO (13:16)
[2016-09-16] MEDS ORDERED: L-LY500T4 (13:16)
[2016-09-16] MEDS ORDERED: ATOR10TA15 PO (13:16)
[2016-09-16] MEDS ORDERED: METH500T3 PO (13:16)
[2016-09-16] MEDS ORDERED: PLAV75TA29 PO (13:16)
[2016-09-16] MEDS ORDERED: BENZ1CAP34 PO (13:16)
[2016-09-16] MEDS ORDERED: CYMB30CA PO (13:16)
[2016-09-16] MEDS ORDERED: CRANCAP2 PO (13:16)
[2016-09-16] MEDS ORDERED: ALBU.5I NEB (13:16)
[2016-09-16] MEDS ORDERED: MELO7.5T4 PO (13:16)
[2016-09-16] MEDS ORDERED: ROPI.25 PO (13:17)
[2016-09-16] MEDS ORDERED: VITATAB20 PO (13:17)
[2016-09-16] MEDS ORDERED: CHOL100025 CHEW (13:17)
[2016-09-16] MEDS ORDERED: VESI5TAB PO (13:17)
[2016-09-16] MEDS ORDERED: PYRI1TAB (13:17)
[2016-09-16] MEDS ORDERED: SERT-129 PO (13:17)
[2016-09-16] MEDS ORDERED: VENTAER INH (13:17)
[2016-09-16] MEDS ORDERED: CHEL50TA (13:17)
[2016-09-16] MEDS ORDERED: VITA100021 SL (13:17)
[2016-09-16] MEDS ORDERED: TRIA37.53 PO (13:17)
[2016-10-08] MEDS ORDERED: ASPI325T PO (10:01)
== END 2016-09-07 11:37 | disposition home or self-care (01) ==
LOC: PHED 10:13
DX: S00.83XA Contusion of other part of head, initial encounter (principal); J44.9 Chronic obstructive pulmonary disease, unspecified; Z96.651 Presence of right artificial knee joint; M19.90 Unspecified osteoarthritis, unspecified site; F41.9 Anxiety disorder, unspecified; W08.XXXA Fall from other furniture, initial encounter; Y93.9 Activity, unspecified; Y92.9 Unspecified place or not applicable; Y99.9 Unspecified external cause status
CPT/HCPCS: 99282

== ENCOUNTER → 2016-10-08 | Day surgery (SDC) | payer MEDICARE, OTHER ==
[~2016-10-08] MED LIST changes: +ALBU.5I NEB; -ALBU8I INH; +ASPI325T PO; +ASPI81CH CHEW; +ATOR10TA15 PO; -BEDSMIS4; +BENZ1CAP34 PO; +BIOTCAP PO; -CALCTAB80 PO; +CHEL50TA; +CHERSYP2 PO; +CHLORHEXIDINE GLUCONATE 2 % 1 PACK (2 CLOTHS) TOPICAL PRN; +CHOL100025 CHEW; +CIPR100T2 PO; +CRANCAP2 PO; +CYMB30CA PO; +DONE10TA7 PO; +FERR325T PO; -FLON0.053; +FOLI400T PO; -FOLI400T30 PO; +FORM1POW2 INH; +GABA300C5 PO; +GELFOAM SIZE 100 ONE; +GENTAMICIN SULFATE 80 MG/2 ML VIAL ONE; +HYDR-3583 PO; +INSULIN HUMAN REGULAR 1,000 UNITS/10 ML VIAL SQ PRN; +L-LY500T4; +LACTATED RINGER'S 1000 ML IV PRN; -LACTTAB7 PO; -LEVO.025 PO; +LEVO75TA3 PO; +LOSA25TA PO; +LYRI100C PO; -LYRI50CA2 PO; +MELO7.5T4 PO; +METH500T3 PO; +METOPROLOL TARTRATE 25 MG TAB PO PRN; +MICROFIBRILLAR COLLAGEN HEMOSTAT 70 X 35 MM BANDAGE ONE; +MONTPOW2; +OMEP20TA PO; -OMEP20TA39 PO; +PLAV75TA29 PO; +POVIDONE IODINE 5% (ANTISEPSIS KIT) 4 APPLICATIONS EACH NARE PRN; -PRED10 PO; +PYRI1TAB; +SODIUM CHLOR 0.9% 1000 ML INJ 1,000 ML IV SCH; +SODIUM CHLOR 0.9% 250 ML INJ 250 ML ONE; +SODIUM CHLORID 0.9% 500 ML IV PRN; -SPIRCAP INH; +THROMBIN (TOPICAL) 5,000 UNIT VIAL ONE; +TRIA37.53 PO; +VANCOMYCIN HCL 1000 MG ON-CALL/NS 250 ML IV SCH; +VANCOMYCIN HCL 1000 MG VIAL ONE; +VENTAER INH; +VESI5TAB PO; -VITA-13 PO; -VITA100017 PO; +VITA100021 SL; -VITA100T15 PO; -VITA25TA5 PO; -VITA400C70 PO; +VITATAB20 PO; -Z.0.WALKERFRONT; -ZINC50TA PO; +ceFAZolin 2 GM PREMIX 50 ML ONE
== END | disposition home or self-care (01) ==
LOC: HSDC 09:11
PROVIDERS: ATTEND Neurological Surgery
DX: M47.22 Other spondylosis with radiculopathy, cervical region (principal); Z53.9 Procedure and treatment not carried out, unspecified reason
CPT/HCPCS: G0463; J1580; J3370; J7050; 99211; J0690

== ENCOUNTER 2016-10-15 06:45 | Observation (INO) | payer MEDICARE, OTHER ==
[~2016-10-15] VITALS: Ht 157.5 cm; Wt 65.4 kg
[~2016-10-15 06:45] MED LIST changes: -ASPI81CH CHEW; -BIOTCAP PO; -CHLORHEXIDINE GLUCONATE 2 % 1 PACK (2 CLOTHS) TOPICAL PRN; -CIPR100T2 PO; -GELFOAM SIZE 100 ONE; -GENTAMICIN SULFATE 80 MG/2 ML VIAL ONE; -HYDR-3583 PO; -INSULIN HUMAN REGULAR 1,000 UNITS/10 ML VIAL SQ PRN; -LACTATED RINGER'S 1000 ML IV PRN; -METOPROLOL TARTRATE 25 MG TAB PO PRN; -MICROFIBRILLAR COLLAGEN HEMOSTAT 70 X 35 MM BANDAGE ONE; -POVIDONE IODINE 5% (ANTISEPSIS KIT) 4 APPLICATIONS EACH NARE PRN; -SODIUM CHLOR 0.9% 1000 ML INJ 1,000 ML IV SCH; -SODIUM CHLOR 0.9% 250 ML INJ 250 ML ONE; -SODIUM CHLORID 0.9% 500 ML IV PRN; -THROMBIN (TOPICAL) 5,000 UNIT VIAL ONE; -VANCOMYCIN HCL 1000 MG ON-CALL/NS 250 ML IV SCH; -VANCOMYCIN HCL 1000 MG VIAL ONE; -ceFAZolin 2 GM PREMIX 50 ML ONE
[2016-10-15] MEDS ORDERED: VANCOMYCIN HCL 1000 MG ON-CALL/NS 250 ML IV SCH ×2 (07:00)
[2016-10-15] MEDS ORDERED: SODIUM CHLOR 0.9% 1000 ML INJ 1,000 ML IV SCH (07:00)
[2016-10-15] MEDS ORDERED: POVIDONE IODINE 5% (ANTISEPSIS KIT) 4 APPLICATIONS EACH NARE PRN (07:15)
[2016-10-15] MEDS ORDERED: INSULIN HUMAN REGULAR 1,000 UNITS/10 ML VIAL SQ PRN (07:15)
[2016-10-15] MEDS ORDERED: LACTATED RINGER'S 1000 ML IV PRN (07:15)
[2016-10-15] MEDS ORDERED: SODIUM CHLORID 0.9% 500 ML IV PRN (07:15)
[2016-10-15] MEDS ORDERED: METOPROLOL TARTRATE 25 MG TAB PO PRN (07:15)
[2016-10-15] MEDS ORDERED: CHLORHEXIDINE GLUCONATE 2 % 1 PACK (2 CLOTHS) TOPICAL PRN (07:15)
[2016-10-15 07:18] VITALS: BP 115/55; PULSE 61; RESP 18; TEMP 98.3; O2SAT 96
[2016-10-15] MEDS ORDERED: BIOTCAP PO (07:28)
[2016-10-15] MEDS ORDERED: MICROFIBRILLAR COLLAGEN HEMOSTAT 70 X 35 MM BANDAGE ONE (07:37)
[2016-10-15] MEDS ORDERED: VANCOMYCIN HCL 1000 MG VIAL ONE (07:37)
[2016-10-15] MEDS ORDERED: ceFAZolin 2 GM PREMIX 50 ML ONE (07:38)
[2016-10-15] MEDS ORDERED: THROMBIN (TOPICAL) 5,000 UNIT VIAL ONE (07:38)
[2016-10-15] MEDS ORDERED: GELFOAM SIZE 100 ONE (07:38)
[2016-10-15] MEDS ORDERED: SODIUM CHLOR 0.9% 250 ML INJ 250 ML ONE (07:39)
[2016-10-15] MEDS ORDERED: GENTAMICIN SULFATE 80 MG/2 ML VIAL ONE (07:39)
[2016-10-15] MEDS ORDERED: ARTIFICIAL TEARS OPTH OINT 3.5 APPLIC/3.5 GM TUBO ONE (08:19)
[2016-10-15] MEDS ORDERED: ACETAMINOPHEN 1000 MG/100 ML VIAL IV ONE (08:19)
[2016-10-15] MEDS ORDERED: MIDAZOLAM HCL 2 MG/2 ML VIAL ONE (08:20)
[2016-10-15] MEDS ORDERED: fentaNYL CITRATE 250 MCG/5 ML AMP ONE (08:20)
[2016-10-15] MEDS ORDERED: FAMOTIDINE 20 MG/2 ML VIAL ONE (08:20)
--- NOTE | 2016-10-15 11:44 | PD.OP ---
Operative Report Date of Surgery: Oct 15, 2016 Preoperative Diagnosis: Cervical spinal stenosis Postoperative Diagnosis: Cervical spinal stenosis Procedure: C5-6 anterior cervical discectomy, interbody arthodhesis using PEEK cage filled with autologous bone graft, Simplicity plate and screws Anesthesia: general Surgeon: Juvenal Edgar Home Coordinator(s): Jaleesa Varner Operation and Findings: INDICATIONS FOR THE PROCEDURE Ms Funk is a 75 year-old female who presented with intractable neck pain and clinical evidence of C6 upper extremity radiculopathy. The patient has failed maximum nonsurgical management including multiple modalities of conservative treatment as well as pain management interventions by an interventional pain specialist. A surgical decompression and arthrodhesis were indicated. The [id number] details of the procedure, indications, alternatives, risks and potential complications were fully discussed with the patient. The patient fully understood. All The questions were answered. No guarantees were given. The patient voiced requesting the procedure and provided informed consents. The patient was offered the alternative of delaying the procedure and continuing with nonsurgical management. DETAILS OF THE SURGICAL PROCEDURE After the induction of general anesthesia, endotracheal intubation was performed. A Clark catheter, bilateral LOKESH hose, and sequential compression devices were placed and kept throughout the procedure. The patient was positioned supine on a David table with the head over a gel doughnut. All pressure points were carefully padded with egg crate mattress. The eyes were tapped shut after ointment was applied by the anesthesiologist to prevent corneal abrasion. A Matthew hugger was placed over the exposed lower body to maintain control of the core body temperature. The electrophysiological team placed the needles and electrodes in their proper location and baseline SSEP's and motor evoked potentials were registered. The anterior cervical region was prepped and draped in the usual sterile fashion. A localizing x-ray was performed with a C-arm. The surgical procedure was performed in several steps as follow: SURGICAL APPROACH A skin incision was made along the middle cervical crease with a #10 blade. The dissection was carried out through the platysma exposing the sternocleidomastoid muscle. The cervical spine was approached following the fascial layers of the neck just medial to the anterior border of the sternocleidomastoid and carotid sheath by a combination of sharp and dull dissection. The omohyoid muscle was identified and carefully dissected laterally and the deep cervical fascia was carefully opened. The longus colli muscles were retracted to each side of the midline. A marker was placed at the disc space C5-6 and a cross-table lateral x-ray performed with a C-arm. SURGICAL DECOMPRESSION In order to decompress the anterior surface of the spinal cord it was necessary to preform a microsurgical resection of the disk. At this point in the procedure the operating microscope was draped in the usual sterile fashion and brought to the field. The rest of the surgical procedure was performed using microdissection technique with the exception of the closure. Under the operative microscopic, an anterior osteophytic spur was carefully removed using the leksell, and a self-retaining retractor was placed underneath the longus colli muscle. The annulus at C5-6 was incised with a #15 blade and microdiscectomy was then carefully carried out using angled curets and pituitary forceps. The patient had a posterior osteophytic/disk complex which was producing mass affect on the anterior surface of the dural sac. This was carefully drilled with a TPS drill and resected with a think foot plate 2mm kerrison under high magnification. The posterior longitudinal ligament was then elevated with an angled curet and incised with a 15 bladed knife. A careful ressection of the posterior longitudinal ligament was carried out using a thin footplate 2 mm Kerrison. The decompression was then carried out laterally , and a bilateral foraminotomy was performed with a 2mm thin foot Kerrison. Then the vertebral bodies above and below the disk space were undercut using a 2 mm thin foot Kerrison. The epidural space was the systematically assessed with a nerve hook in search for disk fragments. An excellent decompression was achieved in both, the dural sac and bilateral exiting nerve roots. The incision was then irrigated with a large amount of antibiotic solution INTERBODY ARTHRODHESIS In order to avoid collapse of the disk space which would result in bilateral foraminal stenosis, and to increase the chances of a successful fusion, it was necessary to place an interbody cage filled with autologous bone. At this point of the procedure, the superior and inferior endplates were then evenly decorticated with a TPS drill. The use of a drill in combination with a curette allowed me to systematically remove the cartilaginous endplates, exposing healthy bone for the interbody arthrodesis. forteen millimeters distraction pins were then placed at the vertebral bodies adjacent to the disk space, and gentle distraction was applied. The size of the interbody cage was then assessed using different size spacers, and a rasp was used to ensure no residual cartilage. A PEEK cage of the appropriate size was selected, and the interbody arthrodesis was then preformed by carefully impacting a PEEK cage filled with autologous bone graft to the disc space C5-6. An excellent position of the cage was achieved. This was was confirmed anatomically by feelling the space posterior to the implant and distance to the anterior surface of the dural sac. Radiological confirmation of the position was performed with a cross lateral xray performed with the C-arm. INTERNAL INSTRUMENTAL FIXATION Once that the interbody device was in an appropriate position, it was necessary to stabilize the spine with anterior instrumentation. Anterior instrumentation has demonstrated to increase the rate of fusion, acelerate the patient's recovery, and decrease the rate of failed interbody grafts. At this point of the procedure, the distance between the vertebral bodies was carefully measures, and a Simplicity plate was brought to the field and presented in front of the C5 and 6 vertebral bodies. Predatory Animal Trapper holes were then drilled using the TPS drill, and the plate was then secured to the spine using self-drilling, self-tapping screws. Initially, the inferior right screw was inserted, followed by placement of the contra lateral upper screw. The remaining screws were sequentially placed in a contra-lateral fashion. A proper purchase was achieved with all screws and the position of the cage, plate and screws, and alignment of the spine was assessed anatomically by direct visualization, and radiologically by performing a cross lateral xray of the cervical spine with the C-arm. CLOSURE The incision was irrigated with several liters of antibiotic solution. Hemostasis was achieved with a bipolar. The screws were locked to prevent backing out. A 7 mm David-Miranda drain was left in the prevertebral space and externalized through a separate stab incision. The incision was then closed in layers. 3-0 Vicryl with interrupted sutures was used to close the platysma and subcutaneous tissue. The skin was closed with 4-0 running subcuticular Vicryl and Dermabond was applied to the skin. The drain was secured with a 3-0 nylon. At the end of the procedure the sponge, needle and instrument counts were all correct. The estimated blood loss was less than 30 cc. No blood transfusion was given. No intraoperative complications occurred. The patient received prophylactic antibiotics. The patient was then extubated and transferred to the recovery room in stable condition. Juvenal Edgar MD Oct 15, 2016 11:44
[2016-10-15] MEDS ORDERED: ACETAMINOPHEN 325 MG TAB PO PRN (11:45)
[2016-10-15] MEDS ORDERED: BISACODYL 10 MG SUPP RECTAL PRN (11:45)
[2016-10-15] MEDS ORDERED: CYCLOBENZAPRINE HCL 10 MG TAB PO PRN ×2 (11:45)
[2016-10-15] MEDS ORDERED: ALBUTEROL SULFATE 90 MCG/ACT HFA 8 GM INHALER INH PRN (11:45)
[2016-10-15] MEDS ORDERED: MENTHOL LOZENGE BUCCAL PRN (11:45)
[2016-10-15] MEDS ORDERED: BENZONATATE 100 MG CAP PO PRN (11:45)
[2016-10-15] MEDS ORDERED: ONDANSETRON HCL 4 MG/2 ML VIAL IV PRN (11:45)
[2016-10-15] MEDS ORDERED: traMADol HCL 50 MG TAB PO PRN (11:45)
[2016-10-15] MEDS ORDERED: ACETAMINOPHEN/HYDROcodone 325 MG/10 MG TAB PO PRN (11:45)
[2016-10-15] MEDS ORDERED: SODIUM CHLORIDE 0.9% FLUSH 5 ML FLUSH IVF PRN (11:45)
[2016-10-15] MEDS ORDERED: MORPHINE SULFATE 4 MG/ML INJ IV PUSH PRN ×2 (11:45)
[2016-10-15] MEDS ORDERED: ePHEDrine/NS 25 MG/5 ML SYR IV ONE (12:00)
[2016-10-15] MEDS ORDERED: PROPOFOL 200 MG/20 ML AMP IV ONE (12:00)
[2016-10-15] MEDS ORDERED: PHENYLEPH/NS 1000 MCG/10 ML SYR IV ONE (12:00)
[2016-10-15] MEDS ORDERED: NEOSTIGMINE 3 MG/3 ML SYR IV ONE (12:00)
[2016-10-15] MEDS ORDERED: ONDANSETRON HCL 4 MG/2 ML VIAL IV PUSH ONE (12:00)
[2016-10-15] MEDS ORDERED: LACTATED RINGER'S 1000 ML INJ 2,000 ML IV ONE (12:00)
[2016-10-15] MEDS ORDERED: *morphine SULFATE 8 MG/ML PERIprocedure ONLY ONE (12:16)
[2016-10-15] MEDS ORDERED: DO NOT ADM ANY ANTICOAGULANT DRUGS PRN (13:30)
[2016-10-15] MEDS: NS + KCL 20 MEQ INJ 1,000 ML IV SCH (13:41)
--- NOTE | 2016-10-15 13:42 | RADRPT ---
EXAM DATE/TIME: 10/15/2016 08:49 [facility] COMPARISON: No previous studies available for comparison. INDICATIONS : Herniated disk with stenosis. MEDICAL HISTORY : None. SURGICAL HISTORY : None. ENCOUNTER: Initial ACUITY: 1 day PAIN SCORE: Non-responsive. LOCATION: Cervical spine. FINDINGS: A single lateral image of the lower cervical region and is recorded digitally using C-arm in the oper ating room and there is an anterior cervical plate at C5-6 with orthotopic position of the interspace markers. CONCLUSION: Intraoperative image. Shin Burris MD on October 15, 2016 at 13:39 Board Certified Radiologist. This report was verified electronically.
[2016-10-15] MEDS: clonazePAM 0.5 MG TAB PO SCH ×2 (14:00→18:00)
[2016-10-15] MEDS: METHOCARBAMOL 500 MG TAB PO SCH ×3 (14:00→22:34)
[2016-10-15] MEDS ORDERED: RESP: ALBUTEROL 2.5 MG/3 ML NEB (PRN) NEB (14:30)
[2016-10-15] MEDS: DEXAMETHASONE SOD PHOS 4 MG/ML VIAL IV SCH ×2 (16:00→22:32)
[2016-10-15] MEDS ORDERED: HYDR-3583 PO (16:36)
[2016-10-15] MEDS: ceFAZolin 2 GM PREMIX 50 ML IV SCH (16:48)
[2016-10-15] MEDS ORDERED: GABAPENTIN 300 MG CAP PO SCH (21:00)
[2016-10-15] MEDS ORDERED: ATORVASTATIN 10 MG TAB PO SCH (21:00)
[2016-10-15] MEDS ORDERED: DONEPEZIL HCL 5 MG TAB PO SCH (21:00)
[2016-10-15] MEDS: SODIUM CHLORIDE 0.9% FLUSH 5 ML FLUSH IVF SCH (21:00)
[2016-10-15] MEDS: ACETAMINOPHEN/HYDROcodone 325 MG/10 MG TAB PO PRN (22:33)
[2016-10-15] MEDS: DOCUSATE SODIUM 100 MG CAP PO SCH (22:34)
[2016-10-15] MEDS: PREGABALIN 100 MG CAP PO SCH (22:41)
[2016-10-16 01:01] VITALS: BP 129/59; PULSE 73; RESP 18; TEMP 97.8; O2SAT 96
[2016-10-16] MEDS: ceFAZolin 2 GM PREMIX 50 ML IV SCH ×2 (01:13→09:34)
[2016-10-16 04:07] VITALS: BP 156/82; PULSE 71; RESP 20; TEMP 97.6; O2SAT 95
[2016-10-16] MEDS: NS + KCL 20 MEQ INJ 1,000 ML IV SCH (04:18)
[2016-10-16] MEDS: DEXAMETHASONE SOD PHOS 4 MG/ML VIAL IV SCH ×2 (05:20→09:31)
[2016-10-16] MEDS ORDERED: LEVOTHYROXINE SODIUM 75 MCG TAB PO SCH (06:00)
[2016-10-16 08:20] VITALS: BP 125/57; PULSE 66; RESP 19; TEMP 97.6; O2SAT 97
[2016-10-16] MEDS ORDERED: PANTOPRAZOLE SOD 40 MG DELAYED RELEASE TAB PO SCH (09:00)
[2016-10-16] MEDS ORDERED: [UNRECOGNIZED DRUG - OTHER] PO SCH (09:00)
[2016-10-16] MEDS ORDERED: FOLIC ACID 1 MG TAB PO SCH (09:00)
[2016-10-16] MEDS ORDERED: TOLTERODINE TARTRATE 2 MG CAP LA PO SCH (09:00)
[2016-10-16] MEDS ORDERED: TRIAMTERENE/HCTZ 37.5 MG/25 MG CAP PO SCH (09:00)
[2016-10-16] MEDS ORDERED: PANTOPRAZOLE SOD 20 MG DELAYED RELEASE TAB PO SCH (09:00)
[2016-10-16] MEDS ORDERED: LOSARTAN 25 MG TAB PO SCH (09:00)
[2016-10-16] MEDS: SODIUM CHLORIDE 0.9% FLUSH 5 ML FLUSH IVF SCH (09:00)
[2016-10-16] MEDS ORDERED: CHOLECALCIFEROL (VIT D3) 1000 UNIT TAB PO SCH (09:00)
[2016-10-16] MEDS ORDERED: SERTRALINE HCL 100 MG TAB PO SCH (09:00)
[2016-10-16] MEDS ORDERED: DULoxetine HCl DR 30 MG CAP PO SCH (09:00)
[2016-10-16] MEDS ORDERED: CYANOCOBALAMIN 1,000 MCG TAB PO SCH (09:00)
[2016-10-16] MEDS ORDERED: BIOFLAVONOID PRODUCTS PO SCH (09:00)
[2016-10-16] MEDS ORDERED: VITAMINS C PO SCH (09:00)
[2016-10-16] MEDS: clonazePAM 0.5 MG TAB PO SCH ×2 (09:27→13:31)
[2016-10-16] MEDS: METHOCARBAMOL 500 MG TAB PO SCH ×2 (09:28→13:31)
[2016-10-16] MEDS: PREGABALIN 100 MG CAP PO SCH (09:29)
[2016-10-16] MEDS: ACETAMINOPHEN/HYDROcodone 325 MG/10 MG TAB PO PRN (09:29)
[2016-10-16] MEDS: DOCUSATE SODIUM 100 MG CAP PO SCH (09:30)
[2016-10-16 12:12] VITALS: BP 117/61; PULSE 66; RESP 19; TEMP 96.6; O2SAT 97
--- NOTE | 2016-10-16 13:24 | HHI.DCPOC ---
Discharge Care Plan Diagnosis: (1) Status post cervical arthrodesis Goals to Promote Your Health * To prevent worsening of your condition and complications * To maintain your health at the optimal level Directions to Meet Your Goals Take your medications as prescribed Follow your dietary instruction Follow activity as directed Keep your appointments as scheduled Take your immunizations and boosters as scheduled If your symptoms worsen call your PCP, if no PCP go to Urgent Care Center or Emergency Room Smoking is Dangerous to Your Health. Avoid second hand smoke Call the 24-hour hour crisis hotline for domestic abuse at Delilah Allen Oct 16, 2016 13:24
--- NOTE | 2016-10-16 13:26 | HHI.DS ---
Discharge Summary Admission Date Oct 15, 2016 at 11:38 Discharge Date: Oct 16, 2016 Admitting Diagnosis s/p cervical arthrodesis (1) Status post cervical arthrodesis ICD Code: Z98.1 Brief History Ms Funk is a 75 year-old female who presented with intractable neck pain and clinical evidence of C6 upper extremity radiculopathy. The patient has failed maximum nonsurgical management including multiple modalities of conservative treatment as well as pain management interventions by an interventional pain specialist. A surgical decompression and arthrodesis were indicated. Imaging Last Impressions Cervical Spine X-Ray 10/15/16 0000 Signed Impressions: Service Date/Time: Saturday, October 15, 2016 08:49 - CONCLUSION: Intraoperative image. Shin Burris MD Hospital Course Ms. Funk underwent a C5-6 anterior cervical discectomy, interbody arthodhesis using PEEK cage filled with autologous bone graft, Simplicity plate and screws on Oct 15, 2016. Her surgery went well without complications. Wound care and activity restrictions were discussed. Pt Condition on Discharge: Stable Discharge Disposition: Disch w/ Home Health Serv Discharge Instructions DIET: Follow Instructions for: Heart Healthy Diet ACTIVITIES You can perform: Weight Bearing As Mell ADDITIONAL Activity Instructio: Avoid strenuous activities, heavy lifting, overhead activities, repetitive bending, twisting, pushing, pulling or any activities which might result in stress over the spine. Avoid situtation that will put at risk for falls. Use assistive device as needed for walking. Wear cervical collar at all times, may remove only with meals. New Medications: Hydrocodone-Acetaminophen (Hydrocodone-Acetaminophen) 10-325 mg Tab 1 TAB PO Q8HR PRN PAIN SCALE 1 TO 10 #90 Ref 0 TAB Continued Medications: Albuterol 18 GM Inh (Ventolin Hfa 18 GM Inh) 90 Mcg/Act Aer 1 PUFF INH Q4H PRN SHORTNESS OF BREATH #1 Ref 0 INHALER Albuterol Neb (Albuterol Neb) 2.5 Mg/0.5 Ml Neb 2.5 MG NEB ONCE Note: The Albuterol Sulfate Inhalation Solution is concentrated and must be diluted. Read complete instructions carefully before using. Breathing Treatment #1 Ref 0 NEBULE Aspirin (Aspirin) 325 Mg Tab 325 MG PO DAILY #30 Ref 0 TAB Atorvastatin (Atorvastatin) 10 Mg Tab 10 MG PO HS Cholesterol Management #30 Ref 0 TAB Benzonatate (Benzonatate) 200 Mg Cap 200 MG PO TID PRN COUGH Ref 0 CAP Bioflavonoid Products (Vitamin C Plus) 1,000 Mg Tab 1000 MG PO DAILY Biotin (Biotin) 5 Mg Cap 5 MG PO Nutritional Supplement #1 Ref 0 BOTTLE Cholecalciferol (Vitamin D3) 1,000 Unit Chew 1000 UNITS CHEW DAILY Nutritional Supplement #1 Ref 0 BOTTLE Clonazepam (Klonopin) 0.5 Mg Tab 0.5 MG PO TID anxiety #30 TAB Clopidogrel (Plavix) 75 Mg Tab 75 MG PO DAILY Blood Clot Prevention #30 Ref 0 TAB Cyanocobalamin (Vitamin B-12) 1,000 Mcg Subl 1000 MCG SL DAILY Nutritional Supplement Ref 0 TAB.SL Cyclobenzaprine (Flexeril) 10 Mg Tab 10 MG PO Q8H PRN neck spasm #30 TAB Donepezil (Donepezil) 10 Mg Tab 10 MG PO HS Dementia #30 Ref [address] (Cymbalta DR) 30 Mg Capdr 30 MG PO DAILY #30 Ref 0 CAP Folic Acid (Folic Acid) 400 Mcg Tab 400 MCG PO DAILY Nutritional Supplement Ref 0 TAB Gabapentin (Gabapentin) 300 Mg Cap 300 MG PO BID #60 Ref 0 CAP Levothyroxine (Levothyroxine) 75 Mcg Tab 75 MCG PO DAILY Thyroid #30 Ref 0 TAB Losartan (Losartan) 25 Mg Tab 25 MG PO DAILY Blood Pressure Management #30 Ref 0 TAB Lysine (l-Lysine) 500 Mg Tab Meloxicam (Meloxicam) 7.5 Mg Tab 7.5 MG PO DAILY Arthritis Pain Ref 0 TAB Methocarbamol (Methocarbamol) 500 Mg Tab 1000 MG PO QID Muscle Spasm #240 Ref 0 TAB Montelukast Sodium (Bulk) (Montelukast Sodium) 1 Pow Pow 10 MG Omeprazole (Omeprazole) 20 Mg Tab 20 MG PO DAILY #30 Ref 0 TAB Pregabalin (Lyrica) 100 Mg Cap 100 MG PO BID #60 Ref 0 CAP Pyridoxine (Vitamin B-6) 100 Mg Tab Ropinirole (Requip) 0.25 Mg Tab 0.25 MG PO HS #30 Ref 0 TAB Sertraline (Sertraline) 100 Mg Tab 100 MG PO DAILY #30 Ref 0 TAB Solifenacin (Vesicare) 5 Mg Tab 5 MG PO DAILY Urinary Symptom Managemen #30 Ref 0 TAB Tramadol (Ultram) 50 Mg Tab 50 MG PO Q6HR PRN pain level 4-10 #30 TAB Triamterene-Hydrochlorothiazide (Triamterene-Hydrochlorothiazide) 37.5-25 Mg Cap 1 CAP PO DAILY #30 Ref 0 CAP Vitamins C & E (Cranberry Urinary Comfort) 1 Cap 300 CAP PO DAILY Urinary Symptom Managemen Ref 0 CAP Zinc Gluconate (Zinc) 50 Mg Tab 50 Delilah Allen Oct 16, 2016 13:26
--- NOTE | 2016-10-16 14:10 | HHI.FF ---
Face to Face Verification Diagnosis: (1) Status post cervical arthrodesis Physical Therapy Order: Improve ambulation Home Health Nursing Order: Medical education Signs/symptoms of disease process Medication education-adverse effect Wound care and dressing changes Nursing assessment with vital signs I have seen patient Katie Funk on 10/16/16. My clinical findings support the need for the requested home health care services because: Ltd mobility - disease progression Deconditioned w/ increased weakness I certify that my clinical findings support that this patient is homebound because: Post-op weakness Unsteady gait/balance Unsafe to leave home unassisted Delilah Allen Oct 16, 2016 14:10
== END 2016-10-16 16:45 | disposition home or self-care (01) ==
LOC: HSDC 06:45 → HSDI 11:38 → N05A 19:18
PROVIDERS: ADMIT Neurological Surgery; ATTEND Neurological Surgery
DX: M48.02 Spinal stenosis, cervical region (principal); M54.12 Radiculopathy, cervical region; I12.9 Hypertensive chronic kidney disease with stage 1 through stage 4 chronic kidney disease, or unspecified chronic kidney disease; N18.9 Chronic kidney disease, unspecified; E78.5 Hyperlipidemia, unspecified; J44.9 Chronic obstructive pulmonary disease, unspecified; F17.200 Nicotine dependence, unspecified, uncomplicated; F32.9 Major depressive disorder, single episode, unspecified; K21.9 Gastro-esophageal reflux disease without esophagitis; Z86.73 Personal history of transient ischemic attack (TIA), and cerebral infarction without residual deficits
CPT/HCPCS: 00600; 20936; 22551; 22853; 72020; 76000; 94150; 97162; C1713; G0378; G8987; G8988; J0131; J0690; J1100; J1580; J2250; J2270; J2370; J2405; J2710; J3010; J3370; J3480; J7050; J7120; L0150; L0172

== ENCOUNTER 2016-11-12 12:07 | Emergency (ER) | payer MEDICARE, OTHER ==
[~2016-11-12] VITALS: Ht 157.5 cm; Wt 66.0 kg
[~2016-11-12 12:07] MED LIST changes: +BIOTCAP PO; -CHERSYP2 PO; -FERR325T PO; -FORM1POW2 INH; +HYDR-3583 PO
[2016-11-12 12:18] VITALS: BP 110/52; PULSE 64; RESP 16; TEMP 97.8; O2SAT 97
--- NOTE | 2016-11-12 13:04 | PD ---
HPI Chief Complaint: Eye Problems/Injury Time Seen by Provider: 12:53 Travel History International Travel<30 days: No Contact w/Intl Traveler<30days: No Traveled to known affect area: No History of Present Illness HPI 75-year-old female patient presents to the ER today because she states that she brushed up against a bottle brush and felt relief go into her left eye, is having intense erythema of the left eye. She denies any vision change or any eye itching or pain. She states it happened just a few hours ago. Modifying Factors: None Associated Signs & Symptoms: Intense left eye redness Risk Factors: None PFSH Past Medical History Hx Anticoagulant Therapy: No Arthritis: Yes Cancer: No Cardiovascular Problems: No COPD: Yes Diabetes: No Diminished Hearing: No Endocrine: Yes Gastrointestinal Disorders: Yes (ULCER HX) Genitourinary: Yes (kidney injury) Hepatitis: No Hiatal Hernia: No Immune Disorder: No Musculoskeletal: Yes Neurologic: No Psychiatric: Yes (ANXIETY) Reproductive: No Respiratory: Yes Thyroid Disease: Yes Tetanus Vaccination: < 5 Years Influenza Vaccination: No ?: Not Past Surgical History Abdominal Surgery: Yes AICD: No Cholecystectomy: Yes Endocrine Surgery: No Gynecologic Surgery: Yes (hysterectomy) Joint Replacement: Yes (RIGHT KNEE, LEFT HIP) Oral Surgery: Yes (T & A) Pacemaker: No Other Surgery: Yes Social History Alcohol Use: No Tobacco Use: No Substance Use: No Allergies-Medications (Allergen,Severity, Reaction): Coded Allergies: Adhesives (Unverified Allergy, Severe, SKIN TEAR, 11/12/16) Reported Meds & Prescriptions Reported Meds & Active Scripts Active Hydrocodone-Acetaminophen 10-325 mg Tab 1 Tab PO Q8HR PRN Flexeril (Cyclobenzaprine HCl) 10 Mg Tab 10 Mg PO Q8H PRN Ultram (Tramadol HCl) 50 Mg Tab 50 Mg PO Q6HR PRN Klonopin (Clonazepam) 0.5 Mg Tab 0.5 Mg PO TID Reported Biotin 5 Mg Cap 5 Mg PO Aspirin 325 Mg Tab 325 Mg PO DAILY Zinc (Zinc Gluconate) 50 Mg Tab 50 Vitamin D3 (Cholecalciferol) 1,000 Unit Chew 1,000 Units CHEW DAILY Vitamin C Plus (Bioflavonoid Products) 1,000 Mg Tab 1,000 Mg PO DAILY Vitamin B-6 (Pyridoxine HCl) 100 Mg Tab Vitamin B-12 (Cyanocobalamin) 1,000 Mcg Subl 1,000 Mcg SL DAILY Ventolin Hfa 18 GM Inh (Albuterol Sulfate) 90 Mcg/Act Aer 1 Puff INH Q4H PRN Triamterene-Hydrochlorothiazide 37.5-25 Mg Cap 1 Cap PO DAILY Sertraline (Sertraline HCl) 100 Mg Tab 100 Mg PO DAILY Requip (Ropinirole HCl) 0.25 Mg Tab 0.25 Mg PO HS Plavix (Clopidogrel Bisulfate) 75 Mg Tab 75 Mg PO DAILY Omeprazole 20 Mg Tab 20 Mg PO DAILY Montelukast Sodium (Montelukast Sodium (Bulk)) 1 Pow Pow 10 Mg Methocarbamol 500 Mg Tab 1,000 Mg PO QID Meloxicam 7.5 Mg Tab 7.5 Mg PO DAILY Lyrica (Pregabalin) 100 Mg Cap 100 Mg PO BID Losartan (Losartan Potassium) 25 Mg Tab 25 Mg PO DAILY l-Lysine (Lysine) 500 Mg Tab Levothyroxine (Levothyroxine Sodium) 75 Mcg Tab 75 Mcg PO DAILY Gabapentin 300 Mg Cap 300 Mg PO BID Folic Acid 400 Mcg Tab 400 Mcg PO DAILY Donepezil 10 Mg Tab 10 Mg PO HS Cymbalta DR (Duloxetine HCl) 30 Mg Capdr 30 Mg PO DAILY Cranberry Urinary Comfort (Vitamins C & E) 1 Cap 300 Cap PO DAILY Benzonatate 200 Mg Cap 200 Mg PO TID PRN Atorvastatin (Atorvastatin Calcium) 10 Mg Tab 10 Mg PO HS Albuterol Neb (Albuterol Sulfate) 2.5 Mg/0.5 Ml Neb 2.5 Mg NEB ONCE Note: The Albuterol Sulfate Inhalation Solution is concentrated and must be diluted. Read complete instructions carefully before using. Review of Systems Except as stated in HPI: all other systems reviewed are Neg Physical Exam Narrative GENERAL: Well-developed elderly white female patient currently in mild distress. Awake and oriented 3. SKIN: Focused skin assessment warm/dry. There is notable ecchymotic areas on both arms which are nontender to palpation. HEAD: Atraumatic. Normocephalic. EYES: Pupils equal and round. No scleral icterus. There is intense hematoma formation around the cornea at the left eye. Normal vision both eyes. Pupils are small, poorly reactive to light bilaterally. No hyphema. ENT: No nasal bleeding or discharge. Mucous membranes pink and moist. NECK: Trachea midline. No JVD. CARDIOVASCULAR: Regular rate and rhythm. No murmur appreciated. RESPIRATORY: No accessory muscle use. Clear to auscultation. Breath sounds equal bilaterally. GASTROINTESTINAL: Abdomen soft, non-tender, nondistended. Hepatic and splenic margins not palpable. MUSCULOSKELETAL: No obvious deformities. No clubbing. No cyanosis. No edema. NEUROLOGICAL: Awake and alert. No obvious cranial nerve deficits. Motor grossly within normal limits. Normal speech. PSYCHIATRIC: Appropriate mood and affect; insight and judgment normal. Data Data Last Documented VS Vital Signs Date Time Temp Pulse Resp B/P Pulse Ox O2 Delivery O2 Flow Rate FiO2 11/12/16 12:18 97.8 64 16 110/52 97 Orders Complete Blood Count With Diff (11/12/16 12:53) Basic Metabolic Panel (Bmp) (11/12/16 12:53) Prothrombin Time / Inr (Pt) (11/12/16 12:53) Act Partial Throm Time (Ptt) (11/12/16 12:53) [facility] Medical Decision Making Medical Screen Exam Complete: Yes Emergency Medical Condition: Yes Medical Record Reviewed: Yes Differential Diagnosis Left eye intense rednessconjunctivitis versus allergic reaction versus subconjunctival hematoma Narrative Course Case was discussed with 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 Lab work had been sent to rule out coagulopathy or platelet dysfunction. At this point, patient has been released to follow-up with Dr. Rain. Diagnosis Primary Impression: Subconjunctival hematoma Referrals: Jan Peres MD Disposition: 01 DISCHARGE HOME Condition: Stable Corinne Seo MD November 12, 2016 13:04
[2016-11-12 13:18] LABS: AUTOMATED NEUTROPHIL # 5.8 TH/MM3 (1.8-7.7); BASOPHIL # 0.1 TH/MM3 (0-0.2); BASOPHIL % 0.8 % (0.0-2.0); EOSINOPHIL # 0.4 TH/MM3 (0-0.4); EOSINOPHIL % 4.9 % (0.0-4.0); HEMATOCRIT 30.2 % (35.0-46.0); HEMO FLAGS DIFF FINAL; LYMPHOCYTE # 1.5 TH/MM3 (1.0-4.8); MEAN CELL VOLUME 91.8 FL (80.0-100.0); MEAN CORPUSCULAR HEMOGLOBIN 30.7 PG (27.0-34.0); MEAN CORPUSCULAR HGB CONC 33.4 % (32.0-36.0); MONO % 6.6 % (0.0-8.0); NEUT % 69.7 % (16.0-70.0); PLATELET COUNT 202 TH/MM3 (150-450); RED BLOOD COUNT 3.29 MIL/MM3 (4.00-5.30); RED CELL DISTRIBUTION WIDTH 14.4 % (11.6-17.2); WHITE BLOOD COUNT 8.4 TH/MM3 (4.0-11.0)
[2016-11-12 13:29] LABS: POTASSIUM 5.1 MEQ/L (3.5-5.1)
[2016-11-12 13:32] LABS: BICARBONATE 26.3 MEQ/L (21.0-32.0)
[2016-11-12 13:33] LABS: INTERNATIONAL NORMALIZED RATIO 0.9 RATIO; PROTHROMBIN TIME - PATIENT 10.4 SEC (9.8-11.6)
== END 2016-11-12 13:35 | disposition home or self-care (01) ==
LOC: PHED 12:07
DX: H57.8 Other specified disorders of eye and adnexa (principal); M19.90 Unspecified osteoarthritis, unspecified site; J44.9 Chronic obstructive pulmonary disease, unspecified; F41.9 Anxiety disorder, unspecified; E07.9 Disorder of thyroid, unspecified; Z79.02 Long term (current) use of antithrombotics/antiplatelets; Z79.899 Other long term (current) drug therapy; Z79.82 Long term (current) use of aspirin; Z79.51 Long term (current) use of inhaled steroids
CPT/HCPCS: 80048; 85025; 85610; 85730; 99283